=== PATIENT | female | born 1980 | race Caucasian/White ===

== ENCOUNTER 2016-08-07 09:50 | Outpatient (CLI) | payer MEDICARE ==
[2016-08-07 12:48] LABS: BASOPHILS % (AUTO) 0.3 %; EOSINOPHILS % (AUTO) 0.7 %; HCT - HEMATOCRIT 42.8 % (37.0-47.0); HGB - HEMOGLOBIN 14.1 g/dL (12.0-16.0); LYMPHOCYTES # (AUTO) 1.5 10^3/uL (1.5-3.5); LYMPHOCYTES % (AUTO) 23.1 %; MEAN CORPUSCULAR HEMOGLOBIN 28.2 pg (27.0-31.0); MEAN CORPUSCULAR VOLUME 85.4 fL (81.0-99.0); MEAN PLATELET VOLUME 9.1 fL (7.9-10.8); MONOCYTES # (AUTO) 0.4 10^3/uL (0.0-1.0); MONOCYTES % (AUTO) 6.2 %; NEUTROPHILS # (AUTO) 4.6 10^3/uL (1.5-6.6); NEUTROPHILS % (AUTO) 69.7 %; RED BLOOD COUNT 5.01 10^6/uL (4.20-5.40); RED CELL DISTRIBUTION WIDTH 14.5 % (12.0-15.0); UNCORRECTED WHITE BLOOD COUNT 6.6 x10^3/uL; WHITE BLOOD COUNT 6.6 x10^3/uL (4.8-10.8)
[2016-08-07 13:12] LABS: ALBUMIN/GLOBULIN RATIO 1.3 (1.0-2.2); BILIRUBIN,TOTAL 0.5 mg/dL (0.2-1.0); CREATININE 0.8 mg/dL (0.4-1.0); POTASSIUM 3.8 mmol/L (3.5-5.0); TOTAL PROTEIN 7.5 g/dL (6.7-8.2)
[2016-08-07 13:39] LABS: FOLATE 16.84 ng/mL (5.90 - >24.8)
[2016-08-07 13:47] LABS: THYROID STIMULATING HORMONE 1.62 uIU/mL (0.34-5.60)
== END 2016-08-07 09:51 | disposition home or self-care (01) ==
LOC: LAB.WCP 09:50
PROVIDERS: ATTEND Family Medicine
DX: R20.0 Anesthesia of skin (principal)
CPT/HCPCS: 36415; 80053; 82607; 82746; 84443; 85025

== ENCOUNTER 2016-08-15 10:40 | Emergency (ER) | payer MEDICARE ==
--- NOTE | 2016-08-15 11:01 | ED Physician Documentation ---
PD HPI FOCAL NEURO - Stated complaint Stated Complaint: NUMBNESS LT SIDE,NAUSEA - Chief complaint Chief Complaint: Neuro - History obtained from History obtained from: Patient - History of Present Illness Timing - onset: How many months ago (1) Timing - duration: Months (1) Timing - details: Gradual onset, Still present, Waxing and waning Severity of deficit: Moderate Weakness: Face, Left Numbness: Face, Left Associated symptoms: Headache, Nausea / vomiting Contributing factors: positive: Other (hx of migraines) Baseline status: positive: A&OX3, ambulatory, indep Similar symptoms before: Diagnosis (complicated migriane) Recently seen: Clinic (Seen in the clinic with intermittent numbness symptoms and has an MRI scheduled for Wednesday.) Review of Systems Constitutional: reports: Myalgias, Fatigue. denies: Fever, Chills Eyes: denies: Decreased vision Ears: denies: Ear pain Nose: denies: Rhinorrhea / runny nose, Congestion Throat: denies: Sore throat Cardiac: denies: Chest pain / pressure, Palpitations Respiratory: denies: Dyspnea, Cough GI: denies: Abdominal Pain, Nausea, Vomiting, Constipation, Diarrhea : denies: Dysuria, Frequency Skin: denies: Rash Musculoskeletal: reports: Neck pain. denies: Back pain, Extremity pain Neurologic: reports: Focal weakness, Numbness, Headache. denies: Generalized weakness, Difficulty speaking, Head injury, LOC PD PAST MEDICAL HISTORY - Past Medical History Cardiovascular: None Respiratory: None Neuro: Headache/migraine Endocrine/Autoimmune: None GI: GERD : None HEENT: None Psych: Depression, Anxiety, Bipolar disorder, Panic attacks, Post traumatic stress disorder Musculoskeletal: None Derm: None - Past Surgical History Past Surgical History: No General: Cholecystectomy - Present Medications Home Medications: Ambulatory Orders Medication Instructions Recorded Confirmed Lamotrigine [Lamictal] 150 mg PO BID 08/29/14 08/15/16 Alprazolam 1 tab PO .FREQ 08/15/16 08/15/16 - Allergies Allergies/Adverse Reactions: Allergies Allergy/AdvReac Type Severity Reaction Status Date / Time amoxicillin Allergy Intermediate Hives Verified 08/15/16 10:46 - Social History Does the pt smoke?: No Smoking Status: Never smoker Does the pt drink ETOH?: No Does the pt have substance abuse?: No - Immunizations Immunizations are current?: No Immunizations: TDAP >10years/unknown PD ED PE NORMAL - Vitals Vital signs reviewed: Yes (tachy and hypertensive ) - General General: No acute distress, Well developed/nourished - HEENT HEENT: Atraumatic, PERRL, EOMI, Ears normal, Moist mucous membranes, Pharynx benign, Dentition benign - Neck Neck: Supple, no meningeal sign, No bony TTP - Cardiac Cardiac: RRR, No murmur - Respiratory Respiratory: No respiratory distress, Clear bilaterally - Abdomen Abdomen: Soft, Non tender - Back Back: No CVA TTP, No spinal TTP - Derm Derm: Normal color, No rash - Extremities Extremities: No deformity, No edema - Neuro Neuro: Alert and oriented X 3, plant scientist 2-12 intact, No motor deficit, No sensory deficit, Normal speech - Psych Psych: Normal mood, Normal affect NIHSS - Time Time: 11:10 - Level of Consciousness Level of consciousness: (0) Alert, Keenly responsive LOC Questions: (0) Answers both Q's correct LOC Commands: (0) Performs both correctly - Gaze Best Gaze: (0) Normal - Visual Visual: (0) No loss - Facial Palsy Facial Palsy: (0) Normal, symmetrical movement - Motor Arms (both separate) Motor Arm (right): (0) No drift Motor Arm (left): (0) No drift - Motor Legs (both separate) Motor Leg (right): (0) No drift Motor Leg (left): (0) No drift - Limb Ataxia Limb Ataxia: (0) Absent - Sensory Sensory: (0) Normal - Best Language Best Language: (0) No aphasia - Dysarthria Dysarthria: (0) Normal - Extinction and Inattention (formally neg Extinction and inattention: (0) No abnormality - Total Score/Results Total Score/Result: 0 Results - Vitals Vitals: Vital Signs - 24 hr 08/15/16 08/15/16 08/15/16 10:44 12:17 12:39 Temperature 36.5 C 36.5 C Heart Rate 107 H 89 70 Respiratory 18 13 14 Rate Blood Pressure 152/85 H 123/81 H 113/72 O2 Saturation 97 98 98 Oxygen O2 Source Room air - EKG (time done) 1055 Rate: Rate (enter#) (93) Rhythm: NSR Ischemia: Normal ST segments Compare to prior EKG: Old EKG unavailable Computer interpretation: Agree with computer - Labs Labs: Laboratory Tests 08/15/16 08/15/16 08/15/16 11:15 11:15 11:15 WBC 7.2 RBC 4.97 Hgb 14.0 Hct 42.5 MCV 85.4 MCH 28.2 MCHC 33.0 RDW 14.2 Plt Count 205 MPV 8.8 Neut # 5.0 Lymph # 1.7 Miner # 0.5 Eos # 0.1 Baso # 0.0 Absolute Nucleated RBC 0.00 Nucleated RBCs 0.0 Sodium 139 Potassium 4.0 Chloride 106 Carbon Dioxide 25 Anion Gap 8.0 BUN 14 Creatinine 0.7 Estimated GFR (MDRD) 96 Glucose 82 Calcium 9.4 Total Bilirubin 0.5 AST 18 ALT 23 Alkaline Phosphatase 51 Troponin I < 0.04 Total Protein 7.1 Albumin 4.4 Globulin 2.7 Albumin/Globulin Ratio 1.6 Lipase 30 Urine Color Urine Clarity Urine pH Ur Specific [place] Urine Protein Urine Glucose (UA) Urine Ketones Urine Occult Blood Urine Nitrite Urine Bilirubin Urine Urobilinogen Ur Leukocyte Esterase Ur Microscopic Review Urine Culture Comments Urine HCG, Qual 08/15/16 12:15 WBC RBC Hgb Hct MCV MCH MCHC RDW Plt Count MPV Neut # Lymph # Miner # Eos # Baso # Absolute Nucleated RBC Nucleated RBCs Sodium Potassium Chloride Carbon Dioxide Anion Gap BUN Creatinine Estimated GFR (MDRD) Glucose Calcium Total Bilirubin AST ALT Alkaline Phosphatase Troponin I Total Protein Albumin Globulin Albumin/Globulin Ratio Lipase Urine Color YELLOW Urine Clarity CLEAR Urine pH 6.5 Ur Specific [place] <=1.005 Urine Protein NEGATIVE Urine Glucose (UA) NEGATIVE Urine Ketones NEGATIVE Urine Occult Blood TRACE-INTA Urine Nitrite NEGATIVE Urine Bilirubin NEGATIVE Urine Urobilinogen 0.2 (NORMAL) Ur Leukocyte Esterase NEGATIVE Ur Microscopic Review NOT INDICATED Urine Culture Comments NOT INDICATED Urine HCG, Qual NEGATIVE - Rads (name of study) CT head without Radiology: Prelim report reviewed (Impression: No acute intracranial abnormality.), EMP read indepedently, See rad report PD MEDICAL DECISION MAKING - ED course Complexity details: reviewed old records, reviewed results, re-evaluated patient , considered differential, d/w patient, d/w family ED course: 35 y/o female with intermittent left sided symptoms has some anxiety as well and has some symptoms in the right arm as well. She has outpatient workup in progress for MRI to be done in 2 days to R./O MS. She has been treated in the ED previously with immitrex with similar symptoms and this seemed to help. The patient herself feels that there may be some anxiety component to this. She is treated with IV compazine, benadrly, decacdron and saline and she has some improvement but is quite anxious and is given some ativan with improvement in this was well. She continued to have some symptoms after treatment and these resolved in a manor consistent with a response to treatment and she feels the episode is resolved and she would like to go home. I have discussed with the patient both complicated migraine and MS and she has follow up to get the outpatient MRI done. Departure - Departure Disposition: 01 Home, Self Care Clinical Impression: Neuralgic migraine Qualifiers: Headache chronicity pattern: episodic headache Intractability: not intractable Qualified Code(s): G44.019 - Episodic cluster headache, not intractable Condition: Stable Instructions: ED Headache Migraine Follow-Up: Adina Mathew DO [Primary Care Provider] - Discharge Date/Time: 08/15/16 13:39
[2016-08-15] MEDS ORDERED: PROCHLORPERAZINE 10 MG/2 ML VIAL IVP STA (11:22)
[2016-08-15] MEDS ORDERED: SODIUM CHLORIDE 0.9% 1,000 ML IV ONE (11:23)
[2016-08-15] MEDS ORDERED: DEXAMETHASONE 10 MG/ML VIAL IVP STA (11:23)
[2016-08-15] MEDS ORDERED: diphenhydrAMINE INJ 50 MG/ML VIAL IVP STA (11:23)
[2016-08-15] MEDS ORDERED: diphenhydrAMINE INJ 50 MG/ML VIAL ONE (11:30)
[2016-08-15] MEDS ORDERED: DEXAMETHASONE 10 MG/ML VIAL ONE (11:31)
[2016-08-15] MEDS ORDERED: PROCHLORPERAZINE 10 MG/2 ML VIAL ONE (11:31)
[2016-08-15 11:32] LABS: BASOPHILS % (AUTO) 0.5 %; EOSINOPHILS # (AUTO) 0.1 10^3/uL (0.0-0.7); EOSINOPHILS % (AUTO) 0.9 %; HCT - HEMATOCRIT 42.5 % (37.0-47.0); LYMPHOCYTES # (AUTO) 1.7 10^3/uL (1.5-3.5); LYMPHOCYTES % (AUTO) 23.1 %; MEAN CORPUSCULAR HEMOGLOBIN 28.2 pg (27.0-31.0); MEAN CORPUSCULAR VOLUME 85.4 fL (81.0-99.0); MEAN PLATELET VOLUME 8.8 fL (7.9-10.8); MONOCYTES # (AUTO) 0.5 10^3/uL (0.0-1.0); MONOCYTES % (AUTO) 6.4 %; NEUTROPHILS % (AUTO) 69.1 %; RED BLOOD COUNT 4.97 10^6/uL (4.20-5.40); RED CELL DISTRIBUTION WIDTH 14.2 % (12.0-15.0); UNCORRECTED WHITE BLOOD COUNT 7.2 x10^3/uL; WHITE BLOOD COUNT 7.2 x10^3/uL (4.8-10.8)
[2016-08-15 11:40] LABS: ALBUMIN/GLOBULIN RATIO 1.6 (1.0-2.2); BILIRUBIN,TOTAL 0.5 mg/dL (0.2-1.0); CALCIUM 9.4 mg/dL (8.5-10.3); CREATININE 0.7 mg/dL (0.4-1.0); TOTAL PROTEIN 7.1 g/dL (6.7-8.2)
--- NOTE | 2016-08-15 12:07 | CT Preliminary Report ---
Exam: CT Head W/O IMPRESSION: No acute intracranial abnormality. [facility] SITE ID: [id number]
--- NOTE | 2016-08-15 12:10 | CT Report ---
EXAM: CT HEAD EXAM DATE: 08/15/2016 11:36 AM. CLINICAL HISTORY: Left sided numbness. COMPARISON: 01/31/2013. TECHNIQUE: Multiaxial CT images were obtained from the foramen magnum to the vertex. IV contrast: Non e. Reformats: Coronal. In accordance with CT protocol optimization, one or more of the following dose reduction techniques w ere utilized for this exam: automated exposure control, adjustment of mA and/or KV based on patient s ize, or use of iterative reconstructive technique. FINDINGS: Parenchyma: No intraparenchymal hemorrhage. No evidence of mass, midline shift, or CT findings of inf arction. Briggs-white differentiation is distinct. Extraaxial Spaces: Normal for age. No subdural or epidural collections identified. Ventricles: Normal in size and position. Sinuses: Imaged paranasal sinuses, orbits, and mastoids show no significant abnormality. Bones: No evidence of fracture or calvarial defect. Other: None. IMPRESSION: No acute intracranial abnormality. [facility] Referring Provider Line: [phone] SITE ID: [id number]
[2016-08-15] MEDS ORDERED: LORazepam 2 MG/ML SYRINGE IVP STA (12:23)
[2016-08-15 12:27] LABS: BILIRUBIN,URINE NEGATIVE (NEGATIVE); PH,URINE 6.5 PH (5.0-7.5)
[2016-08-15] MEDS ORDERED: LORazepam 2 MG/ML SYRINGE ONE (12:28)
[2016-08-15 12:30] LABS: HCG UR QUAL NEGATIVE; UA CHARGE (STRIP ONLY) YES; UR CULTURE IF IND NOT INDICATED
[2016-08-15] MEDS ORDERED: WATER FOR INJECTION,STERILE 10 ML ONE (12:30)
[2016-08-15 12:39] VITALS: BP 113/72
== END 2016-08-15 13:39 | disposition home or self-care (01) ==
LOC: ED 10:40
DX: G44.019 Episodic cluster headache, not intractable (principal); F41.9 Anxiety disorder, unspecified; R20.0 Anesthesia of skin; R29.810 Facial weakness
CPT/HCPCS: 36415; 70450; 80053; 81003; 81025; 83690; 84484; 85025; 93005; 96374; 96375; 99284; J2060; 81001; 87086

== ENCOUNTER 2016-08-17 07:42 | Outpatient (CLI) | payer MEDICARE ==
[2016-08-17] MEDS ORDERED: GADOBUTROL 10 MMOL/10 ML SYRINGE IVP ONE (08:26)
--- NOTE | 2016-08-17 11:17 | MRI Report ---
EXAM: MRI BRAIN WITHOUT AND WITH CONTRAST EXAM DATE: 08/17/2016 08:54 AM. CLINICAL HISTORY: NUMBNESS. COMPARISON: None. TECHNIQUE: Multiplanar, multisequence T1-weighted and fluid-sensitive MR sequences of the brain were performed. Sequences optimized for routine evaluation. Other: None. Without and with IV Contrast: Yes . Findings: [facility] Referring Provider Line: [phone] SITE ID: [id number]
== END 2016-08-17 07:43 | disposition home or self-care (01) ==
LOC: DI 07:42
PROVIDERS: ATTEND Family Medicine
DX: R20.0 Anesthesia of skin (principal)
CPT/HCPCS: 70553; A9585

== ENCOUNTER 2017-10-13 16:44 | Outpatient (CLI) | payer OTHER, MEDICARE ==
--- NOTE | 2017-10-13 23:34 | Ultrasound Report ---
Procedure Date: 10/13/2017 Accession Number: [id number] / [id number] Procedure: US - Pelvic w/Transvaginal CPT Code: FULL RESULT: EXAM: PELVIC ULTRASOUND EXAM DATE: 10/13/2017 06:08 PM. CLINICAL HISTORY: Abdominal pain. COMPARISON: 06/14/2013. TECHNIQUE: Real-time transabdominal pelvic scan performed to identify the uterus and adnexa and as an overview of other pelvic structures, followed by transvaginal scan to provide greater detail of the uterus and adnexa, with static image documentation. FINDINGS: Uterus: 10.1 x 4.3 x 5.7 cm, volume 129.5 cc. Anteverted position. Normal overall size and echotexture. Masses: None. Endometrium: 6.8 mm. Normal. Cervix: Nabothian cysts are noted. No concerning features. Right Ovary: 1.7 x 1.5 x 2.8 cm, volume 3.7 cc. Normal echotexture and blood flow. Left Ovary: 3.6 x 2.7 x 3.0 cm, volume 15.3 cc. Normal echotexture and blood flow. 1.4 x 0.9 x 1 cm left ovarian cyst. No wall irregularities, mural nodules or thickened septations. Free Fluid: None. Other: None. IMPRESSION: 1. 1.4 cm simple left ovarian cyst. Otherwise, both adnexa and ovaries are normal. 2. No endometrial mass or polyp. No unexpected radiopaque foreign bodies. 3. No uterine fibroids. [facility]
== END 2017-10-13 16:45 | disposition home or self-care (01) ==
LOC: DI 16:44
PROVIDERS: ATTEND Physician Assistant Medical
DX: R10.9 Unspecified abdominal pain (principal); N83.292 Other ovarian cyst, left side
CPT/HCPCS: 76830; 76856

== ENCOUNTER 2018-02-17 15:56 | Observation (INO) | payer OTHER, MEDICARE ==
[2018-02-17] MEDS ORDERED: LORazepam 0.5 MG TABLET PO STA (16:27)
--- NOTE | 2018-02-17 16:29 | ED Physician Documentation ---
PD HPI FOCAL NEURO - Stated complaint Stated Complaint: NUMB FACE,CONFUSION - Chief complaint Chief Complaint: Neuro - History obtained from History obtained from: Patient - History of Present Illness Timing - onset: Other (37-year-old woman with history of bipolar disorder on Lamictal presents with 2 weeks of occasional trouble with word finding. Then over the last 4 days she is noticed left-sided numbness involving the face and arm. And progressively over the last few days she is been weak in both upper extremities and feeling like she is walking into things. There is mild associated headache but it does not really bother her. She does feel anxious with it and request Ativan prior to a CT scan.) Review of Systems Ten Systems: 10 systems reviewed and negative Constitutional: denies: Fever, Chills Throat: denies: Dental pain / toothache, Sore throat Cardiac: denies: Chest pain / pressure, Palpitations Respiratory: denies: Dyspnea PD PAST MEDICAL HISTORY - Past Medical History Cardiovascular: None Respiratory: None Endocrine/Autoimmune: None GI: GERD : None HEENT: None Psych: Depression, Anxiety, Bipolar disorder, Panic attacks, Post traumatic stress disorder Musculoskeletal: None Derm: None - Past Surgical History Past Surgical History: No General: Cholecystectomy - Present Medications Home Medications: Ambulatory Orders Medication Instructions Recorded Confirmed lamoTRIgine [Lamictal] 150 mg PO BID 08/29/14 08/15/16 ALPRAZolam [Alprazolam] 1 tab PO .FREQ 08/15/16 08/15/16 - Allergies Allergies/Adverse Reactions: Allergies Allergy/AdvReac Type Severity Reaction Status Date / Time amoxicillin Allergy Intermediate Hives Verified 02/17/18 16:10 - Social History Does the pt smoke?: No Smoking Status: Never smoker Does the pt drink ETOH?: No Does the pt have substance abuse?: No - Family History Family history: reports: Non contributory - Immunizations Immunizations are current?: No Immunizations: TDAP >10years/unknown PD ED PE NORMAL - Vitals Vital signs reviewed: Yes - General General: Alert and oriented X 3, No acute distress - HEENT HEENT: PERRL, EOMI - Neck Neck: Supple, no meningeal sign, No bony TTP - Cardiac Cardiac: RRR, No murmur - Respiratory Respiratory: No respiratory distress, Clear bilaterally - Abdomen Abdomen: Normal bowel sounds, Soft, Non tender - Back Back: No CVA TTP, No spinal TTP - Derm Derm: Normal color, Warm and dry - Neuro Neuro: Alert and oriented X 3, Normal speech NIHSS - Time Time: 16:25 - Level of Consciousness Level of consciousness: (0) Alert, Keenly responsive LOC Questions: (0) Answers both Q's correct LOC Commands: (0) Performs both correctly - Gaze Best Gaze: (0) Normal - Visual Visual: (0) No loss - Facial Palsy Facial Palsy: (0) Normal, symmetrical movement - Motor Arms (both separate) Motor Arm (right): (0) No drift Motor Arm (left): (0) No drift - Motor Legs (both separate) Motor Leg (right): (0) No drift Motor Leg (left): (0) No drift - Limb Ataxia Limb Ataxia: (0) Absent - Sensory Sensory: (1) [id number] loss (Left face and arm which spares the forehead and leg) - Best Language Best Language: (0) No aphasia - Dysarthria Dysarthria: (0) Normal - Extinction and Inattention (formally neg Extinction and inattention: (0) No abnormality - Total Score/Results Total Score/Result: 1 Results - Vitals Vitals: Vital Signs - 24 hr 02/17/18 16:07 Temperature 36.9 C Heart Rate 101 H Respiratory 20 Rate Blood Pressure 138/95 H O2 Saturation 100 Oxygen O2 Source Room air - Labs Labs: Laboratory Tests 02/17/18 02/17/18 02/17/18 16:15 16:30 16:30 WBC 10.2 RBC 5.38 Hgb 15.0 Hct 46.4 MCV 86.2 MCH 27.9 MCHC 32.4 RDW 14.3 Plt Count 255 MPV 8.6 Neut # (Auto) 7.2 H Lymph # (Auto) 2.3 Hemphill # (Auto) 0.6 Eos # (Auto) 0.1 Baso # (Auto) 0.0 Absolute Nucleated RBC 0.01 Nucleated RBC % 0.1 VBG pH VBG pCO2 VBG pO2 VBG HCO3 VBG Total CO2 VBG O2 Saturation VBG Base Excess Sodium 136 Potassium 3.5 Chloride 105 Carbon Dioxide 23 Anion Gap 8.0 BUN 15 Creatinine 1.0 Estimated GFR (MDRD) 63 L Glucose 92 Calcium 9.6 Total Bilirubin 0.5 AST 19 ALT 26 Alkaline Phosphatase 53 Total Protein 7.4 Albumin 4.4 Globulin 3.0 Albumin/Globulin Ratio 1.5 Lipase 40 Urine Color YELLOW Urine Clarity CLEAR Urine pH 5.5 Ur Specific [place] >=1.030 H Urine Protein NEGATIVE Urine Glucose (UA) NEGATIVE Urine Ketones NEGATIVE Urine Occult Blood SMALL H Urine Nitrite NEGATIVE Urine Bilirubin NEGATIVE Urine Urobilinogen 0.2 (NORMAL) Ur Leukocyte Esterase TRACE H Urine RBC 0-5 Urine WBC 0-3 Ur Squamous Epith Cells MOD Squamous H Urine Bacteria Few Ur Microscopic Review INDICATED Urine Culture Comments NOT INDICATED Urine HCG, Qual NEGATIVE 02/17/18 16:30 WBC RBC Hgb Hct MCV MCH MCHC RDW Plt Count MPV Neut # (Auto) Lymph # (Auto) [place]phill # (Auto) Eos # (Auto) Baso # (Auto) Absolute Nucleated RBC Nucleated RBC % VBG pH 7.373 VBG pCO2 42.8 VBG pO2 30.4 VBG HCO3 24.4 VBG Total CO2 25.7 VBG O2 Saturation 63.5 VBG Base Excess -1.0 Sodium Potassium Chloride Carbon Dioxide Anion Gap BUN Creatinine Estimated GFR (MDRD) Glucose Calcium Total Bilirubin AST ALT Alkaline Phosphatase Total Protein Albumin Globulin Albumin/Globulin Ratio Lipase Urine Color Urine Clarity Urine pH Ur Specific [place] Urine Protein Urine Glucose (UA) Urine Ketones Urine Occult Blood Urine Nitrite Urine Bilirubin Urine Urobilinogen Ur Leukocyte Esterase Urine RBC Urine WBC Ur Squamous Epith Cells Urine Bacteria Ur Microscopic Review Urine Culture Comments Urine HCG, Qual PD MEDICAL DECISION MAKING - ED course ED course: 37 yo woman with Odd Left facial numbness, word finding difficulties and left arm numbness. It does spare the forehead suggesting against a psychosomatic cause. There is no abnormality seen on plain CT. Spoke with Dr. Jones at [facility] who recommends observation here for carotid Dopplers and noncontrast MRI in the morning and spoke with Dr. Christian for same at 6 PM. [facility] does recommend aspirin in the interim. Departure - Departure Disposition: ED Place in Observation Clinical Impression: Stroke-like symptoms Condition: Stable
[2018-02-17 16:35] LABS: BILIRUBIN,URINE NEGATIVE (NEGATIVE); CLARITY,URINE CLEAR (CLEAR); GLUCOSE, URINE (UA) NEGATIVE (NEGATIVE); KETONES,URINE (UA) NEGATIVE (NEGATIVE); LEUKOCYTE ESTERASE, URINE TRACE (NEGATIVE); NITRITE,URINE NEGATIVE (NEGATIVE); OCCULT BLOOD,URINE SMALL (NEGATIVE); PH,URINE 5.5 PH (5.0-7.5); PROTEIN,URINE NEGATIVE (NEGATIVE); UROBILINOGEN,URINE 0.2 (NORMAL) E.U./dL (NORMAL)
[2018-02-17 16:37] LABS: HCG UR QUAL NEGATIVE
[2018-02-17 16:45] LABS: BASOPHILS % (AUTO) 0.3 %; EOSINOPHILS # (AUTO) 0.1 10^3/uL (0.0-0.7); EOSINOPHILS % (AUTO) 0.6 %; LYMPHOCYTES # (AUTO) 2.3 10^3/uL (1.5-3.5); LYMPHOCYTES % (AUTO) 22.8 %; MEAN CORPUSCULAR HEMOGLOBIN 27.9 pg (27.0-31.0); MEAN CORPUSCULAR HGB CONC 32.4 g/dL (32.0-36.0); MEAN CORPUSCULAR VOLUME 86.2 fL (81.0-99.0); MEAN PLATELET VOLUME 8.6 fL (7.9-10.8); MONOCYTES # (AUTO) 0.6 10^3/uL (0.0-1.0); MONOCYTES % (AUTO) 5.5 %; NEUTROPHILS # (AUTO) 7.2 10^3/uL (1.5-6.6); NEUTROPHILS % (AUTO) 70.8 %; PLT - PLATELET COUNT 255 10^3/uL (130-450); RED BLOOD COUNT 5.38 10^6/uL (4.20-5.40); RED CELL DISTRIBUTION WIDTH 14.3 % (12.0-15.0); WHITE BLOOD COUNT 10.2 x10^3/uL (4.8-10.8)
[2018-02-17 16:51] LABS: VBG PCO2 42.8 mmHg (41-51); VBG PH 7.373 (7.31-7.41); VBG PO2 30.4 mmHg (25-47); VBG TOTAL CO2 25.7 mmol/L (24-29)
[2018-02-17 16:53] LABS: RBC,URINE 0-5 /HPF (0-5); SQUAMOUS EPITHELIAL CELL,UR MOD Squamous (<= Few)
[2018-02-17 16:54] LABS: BACTERIA,URINE Few /HPF (None Seen)
[2018-02-17 16:58] LABS: ALBUMIN 4.4 g/dL (3.2-5.5); ALBUMIN/GLOBULIN RATIO 1.5 (1.0-2.2); BILIRUBIN,TOTAL 0.5 mg/dL (0.2-1.0); CALCIUM 9.6 mg/dL (8.5-10.3); TOTAL PROTEIN 7.4 g/dL (6.7-8.2)
--- NOTE | 2018-02-17 17:43 | CT Report ---
Reason: neuro sx with L numbness Procedure Date: 02/17/2018 Accession Number: [id number] / [id number] Procedure: CT - Head W/O CPT Code: FULL RESULT: EXAM: CT HEAD EXAM DATE: 02/17/2018 04:58 PM. CLINICAL HISTORY: Neuro sx with L numbness. COMPARISON: HEAD W/O 08/15/2016 11:31 AM. TECHNIQUE: Multiaxial CT images were obtained from the foramen magnum to the vertex. Reformats: Sagittal and coronal. IV contrast: None. In accordance with CT protocol optimization, one or more of the following dose reduction techniques were utilized for this exam: automated exposure control, adjustment of mA and/or KV based on patient size, or use of iterative reconstructive technique. FINDINGS: Parenchyma: No intraparenchymal hemorrhage. No evidence of mass, midline shift, or CT findings of infarction. Briggs-white differentiation is distinct. Extraaxial Spaces: Normal for age. No subdural or epidural collections identified. Ventricles: Normal in size and position. Sinuses and Orbits: Imaged paranasal sinuses, orbits, and mastoids show no significant abnormality. Bones: No evidence of fracture or calvarial defect. Other: None. IMPRESSION: No acute intracranial CT abnormality. [facility]
[2018-02-17] MEDS ORDERED: ASPIRIN CHEW 81 MG TABLET PO STA (18:12)
[2018-02-17] MEDS ORDERED: SODIUM CHLORIDE FLUSH 0.9% 10 ML SYRINGE IVP PRN (18:16)
[2018-02-17] MEDS ORDERED: ACETAMINOPHEN 325 MG TABLET PO PRN (18:16)
[2018-02-17] MEDS ORDERED: ONDANSETRON 4 MG/2 ML VIAL IVP PRN (18:16)
[2018-02-17] MEDS ORDERED: LORazepam 0.5 MG TABLET PO PRN (18:47)
--- NOTE | 2018-02-17 18:53 | HISTORY & PHYSICAL EXAMINATION ---
Chief Complaint - Chief Complaint Chief Complaint: left facial numbness History of Present Illness - History of Present Illness HPI Comment/Other: Ms. Hernandez is a 37-year-old woman with history of bipolar disorder on Lamictal, anxiety, obese, who present complain left facial numbness. Pt also report she Has felt like having speech difficulties for the last 2 weeks, has been having intermittent left facial numbness for 4 days, and she had mild headache since yesterday. She also report some kind of discoordination and progressively over the last few days she is been weak in both upper extremities and feeling like she is walking into things. She does feel anxious and state she will feel anxiety if her can not stay with her in the night because of his job. Pt denies chest pain, fever, chill, cough, abdomina pain, nausea, vomiting, dysuri a, vision change. Pt had MRI about one and half years ago shown simple-appearing arachnoid cyst 1.1 cm in the corpus callosum. There is no abnormality seen on plain CT today. ER provide spoke with Dr. Jones at [facility] who recommends observation here for carotid Dopplers and noncontrast MRI in the morning and spoke with [facility]ist also recommend aspirin in the interim. Otherwise pt's lab value is unremarkable and is hemodynamic stable. 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 She is with two health children Social History Notes: pt denies cigarette smoking, alcohol and drug abuse - POLST Patient has POLST: No POLST Status: Full Code Meds/Allgy - Home Medications Home Medications: Ambulatory Orders Medication Instructions Recorded Confirmed lamoTRIgine [Lamictal] 150 mg PO BID 08/29/14 08/15/16 - Allergies Allergies/Adverse Reactions: Allergies Allergy/AdvReac Type Severity Reaction Status Date / Time amoxicillin Allergy Intermediate Hives Verified 02/17/18 16:10 Review of Systems - Constitutional Constitutional: denies: Fatigue, Fever, Chills, Malaise, Weakness, Poor appetite, Diaphoresis - Eyes Eyes: denies: Pain, Irritation, Amaurosis, Blurred vision, Spots in vision, Field loss, Vision loss, Dipolpia - Ears, Nose & Throat Ears, Nose & Throat: denies: Ear pain, Hearing loss, Hearing aids, Tinnitus, V ertigo, Nasal pain, Nasal discharge, Nosebleeds, Nasal obstruction, Nasal congestion, Postnasal drainage, Dentures, Sore throat, Hoarseness, Mouth lesions - Cardiovascular Cariovascular: denies: Irregular heart rate, Palpitations, Chest pain, Edema, Lightheadedness, Syncope, Exertional dyspnea, Decr. exercise tolerance - Respiratory Respiratory: denies: Cough, Sputum production, Wheezing, Snoring, Hemoptysis, Orthopnea, SOB at rest, SOB with exertion - Gastrointestinal Gastrointestinal: denies: Abdominal pain, Abdominal distention, Diarrhea, Change in bowel habits, Rectal bleeding, Black stools, Bloody stools, Nausea, Vomiting, Bile emesis, Anand blood emesis, Coffee grounds emesis, Reflux/heartburn - Genitourinary Genitourinary: denies: Dysuria, Frequency, Urgency, Hematuria, Incontinence, Flank pain, Nocturia, Urethral discharge - Musculoskeletal Musculoskeletal: denies: Muscle pain, Back pain, Muscle aches, Stiffness, Limited range of motion, Muscle weakness, Gout, Joint pain - Integumentary Integumentary: denies: Rash, Pruritis, Lesions, Dryness, Lumps, Acne, Pigment changes, Nail changes - Neurological Neurological: reports: Numbness, Abnormal gait, Incoordination, Slurred speech. denies: General weakness, Focal weakness, Headache, Dizziness, Memory problems, Pre-existing deficit, Seizures - Psychiatric Psychiatric: reports: Anxiety. denies: Depression, Suicidal, Delusions, Hallucinations, Homicidal - Endocrine Endocrine: denies: Polyuria, Polydypsia, Polyphagia, Intolerance to cold - Hematologic/Lymphatic Hematologic/Lymphatic: denies: Anemia, Bruising, Petechiae, Blood clots, Lymphadenopathy, Bleeding tendencies Exam - Vital Signs Reviewed Vital Signs: Yes Vital Signs: Vital Signs x48h Temp Pulse Resp BP Pulse Ox 12/27/18 16:07 36.9 C 101 H 20 138/95 H 100 - Physical Exam General Appearance: positive: No acute distress, Alert. negative: Lethargic Eyes Bilateral: positive: Normal inspection, PERRL, No lid inflammation, Conjunctivae nml ENT: positive: ENT inspection nml, Pharynx nml, No signs of dehydration. negative: Purulent nasal drainage, Pharyngeal erythema, Oral lesions Neck: positive: Nml inspection, Thyroid nml, No JVD, Trachea midline. negative: Thyromegaly, Lymphadenopathy (R), Lymphadenopathy (L), Stiff neck, Swelling/bruising, Tracheal deviation Respiratory: positive: Chest non-tender, No respiratory distress, Breath sounds nml. negative: Wheezes, Rales, Rhonchi Cardiovascular: positive: Regular rate & rhythm, No murmur, No gallop. negative: Irregularly irregular, Extrasystoles, Tachycardia, Bradycardia, JVD present, Systolic murmur, Diastolic murmur Peripheral Pulses: positive: 2+ Abdomen: positive: Non-tender, No organomegaly, Nml bowel sounds. negative: Tenderness, Guarding, Rebound Back: positive: Nml inspection. negative: CVA tenderness (R), CVA tenderness (L) Skin: positive: Color nml, No rash, Warm, Dry. negative: Cyanosis, Diaphoresis, Pallor Extremities: positive: Non-tender, Full ROM, Nml appearance. negative: Calf tenderness, Joint swelling, Terrance's sign/cords Neurologic/Psychiatric: positive: Oriented x3, Motor nml, Mood/affect nml. negative: Sensation nml, Weakness, Sensory loss, Facial droop, Slurred/abnml speech, Depressed mood/affect Sepsis Event Note (H) - Evaluation Current Stage of Sepsis: Ruled out Conclusion/Plan - Problem List (1) Stroke-like symptoms Conclusion/Plan: pt report numbness at left facial, bilateral weakness, slow speech. On the examination, pt does not show weakness, and slow speech. pt present normal speech. but pt continue to report some kind of numbness on her left hand and facial. Order MRI, US of Carotid, ECHO start with Aspirin 324 mg daily per [facility] recommended Lipitor 40 mg daily PT/OT tele and vital monitor lab and lipid panel study neuro check (2) Bipolar 1 disorder Conclusion/Plan: stable, continue home meds Lamiotical, and check serum concentration (3) Anxiety Conclusion/Plan: order Ativan, support and monitor (4) Obese Conclusion/Plan: consult with pt for obese, advise loss of weight (5) Full code status Conclusion/Plan: pt request full code - Lab Results Fish Bones: 02/18/18 04:50 02/18/18 04:50 Core Measures - Anticipated LOS I expect patient to be DC'd or transferred within 96 hours.: Yes - DVT/VTE - Prophylaxis VTE/DVT Device ordered at admit?: Yes VTE/DVT Prophylaxis med ordered at admit?: Yes
[2018-02-17] MEDS ORDERED: LORazepam 2 MG/ML VIAL IVP SCH (19:00)
[2018-02-17] MEDS ORDERED: ATORVASTATIN 40 MG TABLET PO SCH (21:00)
[2018-02-17] MEDS: FAMOTIDINE 20 MG TABLET PO SCH (21:51)
[2018-02-17] MEDS: lamoTRIgine 100 MG TABLET PO SCH (21:51)
--- NOTE | 2018-02-18 00:39 | Ultrasound Report ---
Reason: TIA Procedure Date: 02/17/2018 Accession Number: [id number] / [id number] Procedure: US - Carotid Doppler Complete CPT Code: FULL RESULT: EXAM: BILATERAL CAROTID AND VERTEBRAL ARTERY DUPLEX DOPPLER ULTRASOUND: EXAM DATE: 02/17/2018 11:59 PM CLINICAL HISTORY: Stroke. COMPARISON: HEAD W/O 02/17/2018 4:58 PM. TECHNIQUE: Grayscale imaging, color Doppler, and duplex spectral Doppler were used to evaluate the carotid and vertebral arteries bilaterally. Static images were obtained. FINDINGS: No significant plaque is identified in the right or left common or internal carotid arteries. Normal antegrade flow is present in bilateral vertebral arteries. VELOCITIES (cm/sec): Right CCA mid: PSV 104 cm/sec CCA dist: PSV 88 cm/sec ICA prox: PSV 91 cm/sec, EDV 38 cm/sec ICA mid: PSV 97 cm/sec, EDV 45 cm/sec ICA dist: PSV 109 cm/sec, EDV 42 cm/sec ECA: PSV 91 cm/sec Vert: PSV 50 cm/sec ICA/CCA: 1.23 Left CCA mid: PSV 104 cm/sec CCA dist: PSV 87 cm/sec ICA prox: PSV 100 cm/sec, EDV 34 cm/sec ICA mid: PSV 82 cm/sec, EDV 33 cm/sec ICA dist: PSV 81 cm/sec, EDV 30 cm/sec ECA: PSV 96 cm/sec Vert: PSV 49 cm/sec ICA/CCA: 1.14 ICA diameter stenosis: Right: <50% by velocity and <70% by NASCET criteria. Left: <50% by velocity and <70% by NASCET criteria. IMPRESSION: 1. No significant bilateral carotid artery plaquing. 2. In the right carotid artery there are no elevated carotid artery velocities to suggest hemodynamically significant stenosis. 3. In the left carotid artery there are no elevated carotid artery velocities to suggest hemodynamically significant stenosis. 4. Normal antegrade flow is present in bilateral vertebral arteries. General Recommendations: Stenosis =50% ICA - Follow-up ultrasound 6-12 months Stenosis <50% ICA - High Risk Patient with plaque - Follow-up ultrasound 1-2 years Normal Study but High Risk Patient - Follow-up ultrasound 3-5 years Management recommendations and diagnostic criteria are based on current IAC endorsed standards in Carotid Artery Stenosis: Grayscale and Doppler Ultrasound Diagnosis. Validated velocity measurements with angiographic measurements and velocity criteria are extrapolated from diameter data as defined by the Society of Radiologists in Ultrasound Consensus Conference Radiology 2003; 229;340-346. RADIA
[2018-02-18] MEDS: SODIUM CHLORIDE FLUSH 0.9% 10 ML SYRINGE IVP SCH ×2 (01:44→08:35)
[2018-02-18 05:13] LABS: BASOPHILS % (AUTO) 0.5 %; EOSINOPHILS # (AUTO) 0.1 10^3/uL (0.0-0.7); EOSINOPHILS % (AUTO) 0.8 %; HGB - HEMOGLOBIN 13.6 g/dL (12.0-16.0); LYMPHOCYTES # (AUTO) 2.1 10^3/uL (1.5-3.5); LYMPHOCYTES % (AUTO) 27.2 %; MEAN CORPUSCULAR HEMOGLOBIN 27.9 pg (27.0-31.0); MEAN CORPUSCULAR HGB CONC 32.3 g/dL (32.0-36.0); MEAN CORPUSCULAR VOLUME 86.3 fL (81.0-99.0); MEAN PLATELET VOLUME 8.6 fL (7.9-10.8); MONOCYTES # (AUTO) 0.4 10^3/uL (0.0-1.0); MONOCYTES % (AUTO) 5.6 %; NEUTROPHILS # (AUTO) 5.2 10^3/uL (1.5-6.6); NEUTROPHILS % (AUTO) 65.9 %; PLT - PLATELET COUNT 220 10^3/uL (130-450); RED BLOOD COUNT 4.86 10^6/uL (4.20-5.40); RED CELL DISTRIBUTION WIDTH 14.6 % (12.0-15.0); WHITE BLOOD COUNT 7.8 x10^3/uL (4.8-10.8)
[2018-02-18 05:17] LABS: ALBUMIN 3.9 g/dL (3.2-5.5); ALBUMIN/GLOBULIN RATIO 1.3 (1.0-2.2); BILIRUBIN,TOTAL 0.4 mg/dL (0.2-1.0); CALCIUM 8.7 mg/dL (8.5-10.3); CREATININE 0.8 mg/dL (0.4-1.0); MAGNESIUM 2.1 mg/dL (1.7-2.8); TOTAL PROTEIN 6.8 g/dL (6.7-8.2)
[2018-02-18 05:22] LABS: CHOL/HDL RATIO 3.8 (<4.4); CHOLESTEROL 175 mg/dL; HDL CHOLESTEROL 46 mg/dL; LDL CHOLESTEROL,CALCULATED 110 mg/dL; LDL/HDL RATIO 2.4 (<4.4); VLDL CHOLESTEROL 19 mg/dL
[2018-02-18] MEDS ORDERED: ASPIRIN 325 MG TABLET PO SCH (08:00)
[2018-02-18] MEDS: lamoTRIgine 100 MG TABLET PO SCH (08:35)
[2018-02-18] MEDS: FAMOTIDINE 20 MG TABLET PO SCH (08:35)
[2018-02-18] MEDS ORDERED: ENOXAPARIN 40 MG/0.4 ML SYRINGE SUBQ SCH (09:00)
[2018-02-18] MEDS ORDERED: POLYETHYLENE GLYCOL 3350 17 GM PACKET PO SCH (09:00)
--- NOTE | 2018-02-18 11:15 | MRI Report ---
Reason: tia Procedure Date: 02/18/2018 Accession Number: [id number] / [id number] Procedure: MRI - Brain W/O CPT Code: FULL RESULT: MRI BRAIN WITHOUT CONTRAST INDICATION: 37-year-old female with dizziness and headaches. Concern for TIA. TECHNIQUE: 1. T1 sagittal and fat-saturated T2 coronal. 2. Axial T1, FLAIR, T2* and DWI. COMPARISON: Head CT 02/17/2018 brain MRI 08/17/2016 FINDINGS: The quality of the axial T2 FLAIR sequence is not optimal. The previously demonstrated, mild white matter disease in the supratentorial brain is not well seen. No obvious new focal abnormality is identified, and the brain on review of the axial T2 FLAIR and coronal fat saturated T2 sequences. There appear to be flow voids for the main intracranial arteries. No abnormal diffusion restriction is demonstrated. No evidence of acute or chronic hemorrhage on T2*GRE sequence. No abnormal extraaxial fluid collection. No mass effect or midline shift. Ventricular size remains normal. Limited evaluation of the orbits reveals no gross pathology. The paranasal sinuses are essentially clear. No mastoid or middle ear effusion. IMPRESSION: 1. Image quality on axial T2 FLAIR sequence is not optimal, somewhat limiting the diagnostic quality of this examination. 2. However, grossly imaging of the brain appear stable when compared to previous brain MRI 08/17/2016. 3.. There is no evidence of infarction, hemorrhage, space-occupying mass lesion or other acute intracranial abnormality.
[2018-02-18 11:39] VITALS: BP 106/62
--- NOTE | 2018-02-18 12:13 | XRAY Report ---
Reason: SOB Procedure Date: 02/18/2018 Accession Number: [id number] / [id number] Procedure: XR - Chest 1 View X-Ray CPT Code: 08263 FULL RESULT: EXAM: CHEST RADIOGRAPHY EXAM DATE: 02/18/2018 11:26 AM. CLINICAL HISTORY: Shortness of breath. COMPARISON: XR CHEST PA AND LAT 02/18/2009 1:21 PM. TECHNIQUE: 1 view. FINDINGS: Lungs/Pleura: No focal opacities evident. No pleural effusion. No pneumothorax. Mediastinum: Within exam limitations, the cardiomediastinal contour is normal. Other: None. IMPRESSION: No airspace disease is detected. RADIA
--- NOTE | 2018-02-18 14:29 | Discharge Plan ---
Discharge Plan Disposition: 01 Home, Self Care Condition: Poor Prescriptions: Aspirin [Adult Aspirin Regimen] 81 mg PO DAILY #15 tablet. Diet: Regular Activity Restrictions: Activity as Tolerated Shower Restrictions: No (fall precaution) Instruction Topics: Aspirin ASA chewable tablets Additional Instructions or Follow Up instructions: you may followup your PCP in one week, followup neurologist as out-pt. All your tests including MRI of brain, US of carotid, ECHO, CXR, CT of head, EKG, and your blood work are unremarkable at this time. Should your symptoms return or worsen, you may present ER or call 911, or your PCP for help. No Smoking: If you smoke, Please STOP! Call for help. Follow-up with: Adina Mathew DO [Primary Care Provider] -
--- NOTE | 2018-02-18 14:42 | DISCHARGE SUMMARY ---
Discharge Summary Discharge Date: 02/18/18 Discharging Provider: [place] Primary Care Provider: Dr. Mathew Condition at Discharge: Stable Discharge Disposition: 01 Home, Self Care Discharge Facility Name: home - DIAGNOSES Admission Diagnoses: (1) Stroke-like symptoms (2) Bipolar 1 disorder (3) Anxiety (4) Obese Discharge Diagnoses with Status of Each Condition: 1) Stroke-like symptoms resolved. All pt's image studies are unremarkable, include MRI brain, CT of head, ECHO, EKG, US of Carotid, CXR. Discuss with pt about the results of all these image studies pt concern her family hx of MS, her Mother and aunt both had MS. Advise pt followup PCP and neurologist for further evaluation if her symptoms return (2) Bipolar 1 disorder stable (3) Anxiety stable (4) Obese advise pt loss of weight - HPI History of Present Illness: Ms. Hernandez is a 37-year-old woman with history of bipolar disorder on Lamictal, anxiety, obese, who present complain left facial numbness. Pt also report she Has felt like having speech difficulties for the last 2 weeks, has been having intermittent left facial numbness for 4 days, and she had mild headache since yesterday. She also report some kind of discoordination and progressively over the last few days she is been weak in both upper extremities and feeling like she is walking into things. She does feel anxious and state she will feel anxiety if her can not stay with her in the night because of his job. Pt denies chest pain, fever, chill, cough, abdomina pain, nausea, vomiting, dysuria, vision change. Pt had MRI about one and half years ago shown simple-appearing arachnoid cyst 1.1 cm in the corpus callosum. There is no abnormality seen on plain CT today. ER provide spoke with Dr. Jones at [facility] who recommends observation here for carotid Dopplers and noncontrast MRI in the morning and spoke with [facility] neurologist also recommend aspirin in the interim. Otherwise pt's lab value is unremarkable and is hemodynamic stable. - HOSPITAL COURSE Hospital Course: pt was admitted for TIA-like symptoms. Pt's symptoms were resolved after she was at hospital. All pt's image studies are unremarkable. - ALLERGIES Allergies/Adverse Reactions: Allergies Allergy/AdvReac Type Severity Reaction Status Date / Time amoxicillin Allergy Intermediate Hives Verified 02/17/18 16:10 - MEDICATIONS Home Medications: Ambulatory Orders Medication Instructions Recorded Confirmed RX: lamoTRIgine [Lamictal] 300 mg PO QPM 08/29/14 02/18/18 RX: ALPRAZolam [Alprazolam] 1 mg PO DAILY PRN 02/18/18 02/18/18 RX: Aspirin [Adult Aspirin Regimen] 81 mg PO DAILY #15 tablet. 02/18/18 RX: Ibuprofen [Advil] 800 mg PO BID PRN 02/18/18 02/18/18 - PHYSICAL EXAM AT DISCHARGE General Appearance: positive: No acute distress, Alert. negative: Lethargic Eyes Bilateral: positive: Normal inspection, PERRL, No lid inflammation, Conjunctivae nml ENT: positive: ENT inspection nml, Pharynx nml, No signs of dehydration. negative: Purulent nasal drainage, Pharyngeal erythema, Oral lesions Neck: positive: Nml inspection, Thyroid nml, No JVD, Trachea midline. negative: Thyromegaly, Lymphadenopathy (R), Lymphadenopathy (L), Stiff neck, Swelling/bruising, Tracheal deviation Respiratory: positive: Chest non-tender, No respiratory distress, Breath sounds nml. negative: Wheezes, Rales, Rhonchi Cardiovascular: positive: Regular rate & rhythm, No murmur, No gallop. negative: Irregularly irregular, Extrasystoles, Tachycardia, Bradycardia, JVD present, Systolic murmur, Diastolic murmur Peripheral Pulses: positive: 2+ Abdomen: positive: Non-tender, No organomegaly, Nml bowel sounds, No distention. negative: Tenderness, Guarding, Rebound Back: positive: Nml inspection. negative: CVA tenderness (R), CVA tenderness (L) Skin: positive: Color nml, No rash, Warm, Dry. negative: Cyanosis, Diaphoresis, Pallor Extremities: positive: Non-tender, Full ROM, Nml appearance. negative: Calf tenderness, Joint swelling, Terrance's sign/cords Neurologic/Psychiatric: positive: Oriented x3, Motor nml, Sensation nml, Mood/a ffect nml. negative: Weakness, Sensory loss, Facial droop, Slurred/abnml speech, Depressed mood/affect - LABS Result Diagrams: 02/18/18 04:50 02/18/18 04:50 - SEPSIS Current Stage of Sepsis: Ruled out - FOLLOW UP Follow Up: you may followup your PCP in one week, followup neurologist as out-pt. All your tests including MRI of brain, US of carotid, ECHO, CXR, CT of head, EKG, and your blood work are unremarkable at this time. Should your symptoms return or worsen, you may present ER or call 911, or your PCP for help. - TIME SPENT Time Spent in Discharge (Minutes): 45
== END 2018-02-18 15:22 | disposition home or self-care (01) ==
LOC: ED 15:56 → MS2 18:16
PROVIDERS: ADMIT Nurse Practitioner Gerontology; ATTEND Nurse Practitioner Gerontology
DX: R20.0 Anesthesia of skin (principal); R47.9 Unspecified speech disturbances; R53.1 Weakness; R51 Headache; F31.89 Other bipolar disorder; F41.9 Anxiety disorder, unspecified; E66.9 Obesity, unspecified; Z68.41 Body mass index [BMI] 40.0-44.9, adult
CPT/HCPCS: 36415; 70450; 70551; 71045; 80053; 80061; 80175; 81001; 81025; 82803; 83690; 83735; 84484; 85025; 85379; 93005; 93306; 93880; 96374; 97162; 97165; 99283; 99284; A9270; G0378; J2060; 80307; 80320; 81003; 83721; 87086

== ENCOUNTER 2018-03-24 07:46 | Outpatient (CLI) | payer OTHER, MEDICARE ==
[2018-03-24] MEDS ORDERED: GADOBUTROL 10 MMOL/10 ML VIAL ONE (07:59)
[2018-03-24] MEDS ORDERED: GADOBUTROL 10 MMOL/10 ML VIAL IVP ONE (08:57)
--- NOTE | 2018-03-24 11:00 | MRI Report ---
Reason: NEUROLOGIC ABNORMALITY,FACIAL PARESTHESIA Procedure Date: 03/24/2018 Accession Number: [id number] / [id number] Procedure: MRI - Brain W/WO CPT Code: FULL RESULT: EXAM: MRI BRAIN WITHOUT AND WITH CONTRAST EXAM DATE: 03/24/2018 09:31 AM. CLINICAL HISTORY: Neurologic abnormality, facial paresthesia. Migraines. Stated clinical concern for multiple sclerosis on exam requisition. COMPARISON: Brain w/wo contrast 08/17/2016 8:01 AM. Brain w/o contrast 02/18/2018 9:37 AM. TECHNIQUE: Multiplanar, multisequence T1-weighted and fluid-sensitive MR sequences of the brain were performed. Sequences optimized for white matter evaluation. Other: None. IV Contrast: 10 mL Gadavist. FINDINGS: Stable appearance of the brain. No stroke, hemorrhage, atrophy or hydrocephalus. No evidence for developing white matter disease in a pattern that would meet imaging diagnostic criteria for multiple sclerosis. Two or three tiny punctate foci of nonspecific white matter T2 hyperintensity in the left anterior frontal lobe appear stable. No abnormal brain enhancement. No acute-appearing sinus or mastoid disease. The major arterial skull base flow voids are present. No evidence for major dural venous sinus thrombus. IMPRESSION: No acute abnormality or significant change. MRI imaging findings do not meet criteria of multiple sclerosis. RADIA
== END 2018-03-24 07:47 | disposition home or self-care (01) ==
LOC: DI 07:46
PROVIDERS: ATTEND Family Medicine
DX: R29.90 Unspecified symptoms and signs involving the nervous system (principal); R20.2 Paresthesia of skin
CPT/HCPCS: 70553; A9585

== ENCOUNTER 2019-02-01 09:00 | Outpatient (CLI) | payer OTHER, MEDICARE ==
[2019-02-01 18:57] LABS: BILIRUBIN,URINE NEGATIVE (NEGATIVE); GLUCOSE, URINE (UA) NEGATIVE (NEGATIVE); KETONES,URINE (UA) NEGATIVE (NEGATIVE); LEUKOCYTE ESTERASE, URINE NEGATIVE (NEGATIVE); NITRITE,URINE NEGATIVE (NEGATIVE); OCCULT BLOOD,URINE SMALL (NEGATIVE); PROTEIN,URINE NEGATIVE (NEGATIVE); UROBILINOGEN,URINE 0.2 (NORMAL) E.U./dL (NORMAL)
[2019-02-01 19:00] LABS: BASOPHILS % (AUTO) 0.6 %; EOSINOPHILS # (AUTO) 0.1 10^3/uL (0.0-0.7); EOSINOPHILS % (AUTO) 1.1 %; HGB - HEMOGLOBIN 13.7 g/dL (12.0-16.0); LYMPHOCYTES # (AUTO) 1.7 10^3/uL (1.5-3.5); LYMPHOCYTES % (AUTO) 26.4 %; MEAN CORPUSCULAR HEMOGLOBIN 27.5 pg (27.0-31.0); MEAN CORPUSCULAR HGB CONC 30.3 g/dL (32.0-36.0); MEAN CORPUSCULAR VOLUME 90.6 fL (81.0-99.0); MEAN PLATELET VOLUME 11.2 fL (7.9-10.8); MONOCYTES # (AUTO) 0.4 10^3/uL (0.0-1.0); MONOCYTES % (AUTO) 5.7 %; NEUTROPHILS # (AUTO) 4.3 10^3/uL (1.5-6.6); NEUTROPHILS % (AUTO) 65.9 %; PLT - PLATELET COUNT 260 10^3/uL (130-450); RED BLOOD COUNT 4.99 10^6/uL (4.20-5.40); RED CELL DISTRIBUTION WIDTH 14.7 % (12.0-15.0); WHITE BLOOD COUNT 6.5 x10^3/uL (4.8-10.8)
[2019-02-01 19:10] LABS: CLARITY,URINE CLEAR (CLEAR)
[2019-02-01 19:14] LABS: BACTERIA,URINE Few /HPF (None Seen); RBC,URINE 0-5 /HPF (0-5); SQUAMOUS EPITHELIAL CELL,UR FEW Squamous (<= Few)
[2019-02-01 19:16] LABS: HEMOGLOBIN A1C 0.5 g/dL; HEMOGLOBIN A1C % 5.4 % (4.6-6.2)
[2019-02-01 19:20] LABS: ALBUMIN 4.4 g/dL (3.2-5.5); ALBUMIN/GLOBULIN RATIO 1.6 (1.0-2.2); ALKALINE PHOSPHATASE 44 IU/L (42-121); ALT ALANINE AMINOTRANSFERASE 20 IU/L (10-60); AST ASPARTATE AMINOTRANSFERASE 18 IU/L (10-42); BILIRUBIN,TOTAL 0.7 mg/dL (0.2-1.0); BUN - BLOOD UREA NITROGEN 14 mg/dL (6-20); CALCIUM 8.7 mg/dL (8.5-10.3); CARBON DIOXIDE - CO2 26 mmol/L (21-32); CHLORIDE 107 mmol/L (101-111); CHOL/HDL RATIO 3.6 (<4.4); CHOLESTEROL 174 mg/dL; CREATININE 0.8 mg/dL (0.4-1.0); GFR - MDRD 81 (>89); GLUCOSE 84 mg/dL (70-100); HDL CHOLESTEROL 49 mg/dL; LDL CHOLESTEROL,CALCULATED 110 mg/dL; LDL/HDL RATIO 2.2 (<4.4); SODIUM 140 mmol/L (135-145); TOTAL PROTEIN 7.2 g/dL (6.7-8.2); VLDL CHOLESTEROL 15 mg/dL
== END 2019-02-01 09:01 | disposition home or self-care (01) ==
LOC: LAB.WCP 09:00
PROVIDERS: ATTEND Family Medicine
DX: Z00.00 Encounter for general adult medical examination without abnormal findings (principal); R73.01 Impaired fasting glucose; R32 Unspecified urinary incontinence; F31.9 Bipolar disorder, unspecified
CPT/HCPCS: 36415; 80053; 80061; 81001; 81003; 83036; 83721; 84443; 85025; 87086; 87338

== ENCOUNTER 2020-03-27 10:03 | Outpatient (CLI) | payer OTHER ==
[2020-03-27] MEDS ORDERED: GADOBUTROL 15 MMOL/15 ML VIAL ONE (10:48)
[2020-03-27] MEDS ORDERED: GADOBUTROL 15 MMOL/15 ML VIAL IVP ONE (11:24)
--- NOTE | 2020-03-27 12:31 | MRI Report ---
PROCEDURE: Brain W/WO INDICATIONS: INTRACTABLE MIGRAINE, CEREBRAL CYST CONTRAST: IV CONTRAST: Gadavist ml: 12 TECHNIQUE: Noncontrast axial T1 spin echo, axial T2 fast spin echo, sagittal and axial FLAIR, coronal T2 fast sp in echo, axial gradient echo, axial diffusion and ADC through the brain. After the administration of contrast, axial and coronal T1 spin echo with fat saturation through the brain. COMPARISON: 03/24/2018, 02/18/2018, 08/17/2016 FINDINGS: Image quality: Excellent. CSF spaces: Basal cisterns are patent. No extra-axial fluid collections. Ventricles are normal in size and shape. Brain: No midline shift. No intracranial bleeds or masses. No abnormal intracranial enhancement. There is cerebral volume loss for age. There is periventricular white matter chronic small vessel is chemic change. The brainstem appears normal. Diffusion-weighted images demonstrate no acute ischemi c insults. No chronic ischemic insults. Normal intravascular flow voids are present. Skull and face: Calvarial marrow is normal in signal. Orbits appear normal. Sinuses: Sinuses and mastoids appear clear. Incidental note is made of a right-sided elayne bullosa , with associated mild leftward nasal septal deviation. IMPRESSION: No significant intracranial abnormality can be seen. No intracranial cysts are seen. No masses or abnormal enhancement can be seen. No abnormal white matter lesions are seen. Reviewed by: Pk Salas MD on 03/27/2020 11:30 AM [facility] Approved by: Pk Salas MD on 03/27/2020 11:30 AM [facility] Station ID: [id number]
== END 2020-03-27 10:04 | disposition home or self-care (01) ==
LOC: DI 10:03
PROVIDERS: ATTEND Psychiatry & Neurology Neurology
DX: G43.019 Migraine without aura, intractable, without status migrainosus (principal); G93.0 Cerebral cysts
CPT/HCPCS: 70553; A9585

== ENCOUNTER 2020-04-10 08:00 | Outpatient (CLI) | payer BC ==
[2020-04-10 12:46] LABS: BASOPHILS % (AUTO) 0.4 %; EOSINOPHILS # (AUTO) 0.1 10^3/uL (0.0-0.7); HGB - HEMOGLOBIN 13.5 g/dL (12.0-16.0); LYMPHOCYTES # (AUTO) 1.8 10^3/uL (1.5-3.5); LYMPHOCYTES % (AUTO) 23.9 %; MEAN CORPUSCULAR HEMOGLOBIN 27.2 pg (27.0-31.0); MEAN CORPUSCULAR HGB CONC 30.5 g/dL (32.0-36.0); MEAN CORPUSCULAR VOLUME 89.1 fL (81.0-99.0); MEAN PLATELET VOLUME 11.3 fL (7.9-10.8); MONOCYTES # (AUTO) 0.4 10^3/uL (0.0-1.0); MONOCYTES % (AUTO) 5.4 %; NEUTROPHILS % (AUTO) 68.5 %; PLT - PLATELET COUNT 263 10^3/uL (130-450); RED BLOOD COUNT 4.96 10^6/uL (4.20-5.40); RED CELL DISTRIBUTION WIDTH 15.4 % (12.0-15.0); WHITE BLOOD COUNT 7.4 x10^3/uL (4.8-10.8)
[2020-04-10 13:14] LABS: ALBUMIN 4.3 g/dL (3.2-5.5); ALBUMIN/GLOBULIN RATIO 1.7 (1.0-2.2); ALKALINE PHOSPHATASE 49 IU/L (42-121); ALT ALANINE AMINOTRANSFERASE 32 IU/L (10-60); AST ASPARTATE AMINOTRANSFERASE 19 IU/L (10-42); BILIRUBIN,TOTAL 0.5 mg/dL (0.2-1.0); BUN - BLOOD UREA NITROGEN 20 mg/dL (6-20); CALCIUM 9.8 mg/dL (8.5-10.3); CARBON DIOXIDE - CO2 25 mmol/L (21-32); CHLORIDE 102 mmol/L (101-111); CHOL/HDL RATIO 3.6 (<4.4); CHOLESTEROL 204 mg/dL; CREATININE 0.8 mg/dL (0.4-1.0); GLUCOSE 112 mg/dL (70-100); HDL CHOLESTEROL 57 mg/dL; LDL CHOLESTEROL,CALCULATED 128 mg/dL; LDL/HDL RATIO 2.2 (<4.4); TOTAL PROTEIN 6.9 g/dL (6.7-8.2); VLDL CHOLESTEROL 19 mg/dL
[2020-04-10 15:58] LABS: HEMOGLOBIN A1c% 5.2 % (4.27-6.07)
== END 2020-04-10 23:59 | disposition home or self-care (01) ==
LOC: LAB.WCP 08:00
PROVIDERS: ATTEND Family Medicine
DX: F31.9 Bipolar disorder, unspecified (principal); E78.1 Pure hyperglyceridemia; R73.01 Impaired fasting glucose
CPT/HCPCS: 36415; 80053; 80061; 80175; 83036; 83721; 84443; 85025

== ENCOUNTER 2020-04-17 13:23 | Emergency (ER) | payer BC ==
--- NOTE | 2020-04-17 13:41 | ED Physician Documentation ---
History of Present Illness - Stated complaint Stated Complaint: SHOOTING ABD PX - Chief complaint Chief Complaint: Abd Pain - Additonal information Additional information: 39-year-old female presents the emergency department for evaluation of acute left flank pain. Began last night and she reports that it radiates towards her back under her rib cage. She states the pain feels similar to when she had a cholecystectomy many years ago. She denies any hematuria dysuria or changes in pain with micturition. Patient reports a history of severe GERD. States that she vomits every day unless she takes her omeprazole. Past surgical history: Cholecystectomy tubal ligation. meds: lamotrigine, omeprazole Review of Systems Constitutional: reports: Reviewed and negative Eyes: reports: Reviewed and negative Ears: reports: Reviewed and negative Nose: reports: Rhinorrhea / runny nose Throat: reports: Reviewed and negative Cardiac: reports: Reviewed and negative Respiratory: reports: Reviewed and negative GI: reports: Abdominal Pain, Nausea, Vomiting : denies: Dysuria, Hematuria Skin: denies: Rash, Lesions Musculoskeletal: reports: Reviewed and negative Neurologic: reports: Reviewed and negative PD PAST MEDICAL HISTORY - Past Medical History Past Medical History: Yes Cardiovascular: None Respiratory: None Neuro: Other Endocrine/Autoimmune: None GI: GERD : None HEENT: None Psych: Depression, Anxiety, Bipolar disorder, Panic attacks, Post traumatic stress disorder Musculoskeletal: None Derm: None - Past Surgical History Past Surgical History: No 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, Other - Present Medications Home Medications: Ambulatory Orders Medication Instructions Recorded Confirmed lamoTRIgine [Lamictal] 300 mg PO QPM 08/29/14 04/17/20 ALPRAZolam [Alprazolam] 1 mg PO DAILY PRN 02/18/18 04/17/20 - Allergies Allergies/Adverse Reactions: Allergies Allergy/AdvReac Type Severity Reaction Status Date / Time amoxicillin Allergy Intermediate Hives Verified 04/17/20 13:26 - Social History Does the pt smoke?: No Smoking Status: Never smoker Does the pt drink ETOH?: No Does the pt have substance abuse?: No - Immunizations Immunizations are current?: No Immunizations: TDAP >10years/unknown - POLST Patient has POLST: No POLST Status: Full Code PD ED PE EXPANDED - General General: Alert, No acute distress, Other (obese) - Cardiac Cardiac: Regular Rate, Regular Rhythm, Radial strong equal, Cap refill < 2 sec - Respiratory Respiratory: Clear to ausultation arlen. No: Distress, Labored - Abdomen Abdomen: Normal Bowel sounds, Other (Exam somewhat limited by body habitus. Left flank pain without guarding or rebound. No CVA tenderness) - Derm Derm: Normal color, Warm and dry - Extremities Extremities: Normal. No: Deformity, Tenderness - Neuro Neuro: Alert and Oriented X 3, CNII-XII intact - GCS Eye Opening: Spontaneous Motor: Obeys Commands Verbal: Oriented Total: 15 Results - Vitals Vitals: Vital Signs - 24 hr 04/17/20 04/17/20 13:27 13:29 Temperature 37.3 C 37.3 C Heart Rate 93 93 Respiratory 19 19 Rate Blood Pressure 146/97 H 146/97 H O2 Saturation 98 98 Oxygen O2 Source [With Activity] Nasal cannula O2 Source Room air - Labs Labs: Laboratory Tests 04/17/20 04/17/20 04/17/20 13:31 14:05 14:05 WBC 8.4 RBC 4.97 Hgb 13.3 Hct 43.3 MCV 87.1 MCH 26.8 L MCHC 30.7 L RDW 14.9 Plt Count 232 MPV 10.3 Neut # (Auto) 6.2 Lymph # (Auto) 1.7 Clare # (Auto) 0.4 Eos # (Auto) 0.0 Baso # (Auto) 0.0 Absolute Nucleated RBC 0.00 Nucleated RBC % 0.0 Sodium 139 Potassium 3.8 Chloride 104 Carbon Dioxide 21 Anion Gap 14.0 H BUN 16 Creatinine 0.8 Estimated GFR (MDRD) 81 L Glucose 87 Calcium 9.1 Total Bilirubin 0.6 AST 20 ALT 23 Alkaline Phosphatase 55 Total Protein 7.6 Albumin 4.4 Globulin 3.2 Albumin/Globulin Ratio 1.4 Lipase 33 Urine Color YELLOW Urine Clarity CLEAR Urine pH 6.0 Ur Specific Hessel >=1.030 H Urine Protein NEGATIVE Urine Glucose (UA) NEGATIVE Urine Ketones 15 H Urine Occult Blood SMALL H Urine Nitrite NEGATIVE Urine Bilirubin NEGATIVE Urine Urobilinogen 0.2 (NORMAL) Ur Leukocyte Esterase NEGATIVE Urine RBC 6-10 H Urine WBC 0-3 Ur Squamous Epith Cells FEW Squamous Urine Bacteria Rare Urine Mucus Few Strands Ur Microscopic Review INDICATED Urine Culture Comments NOT INDICATED Urine HCG, Qual NEGATIVE - Rads (name of study) CT abd Radiology: Final report received (No evidence of acute abdominal process. Remote cholecystectomy. My normal mild splenomegaly unchanged.) PD MEDICAL DECISION MAKING - ED course Complexity details: reviewed results, re-evaluated patient, considered differential, d/w patient ED course: 39-year-old female presents emergency department for evaluation of acute onset left flank pain. Screening labs reveal no significant abnormalities. Her urine does have some mild hematuria. Patiently history and presentation I was most suspicious for a renal colic. CT of the abdomen did not reveal any hydroureter hydronephrosis. No obvious obstructing stones are seen. Pain was improved following Dilaudid and Toradol here in the emergency department. Given the flank pain and hematuria I am still suspicious that she may have passed a stone on seen on CAT scan. Will recommend that she take ibuprofen and continue to follow-up with her primary care doctor Dr. Mathew on the first as scheduled. She does endorse that she daily has acid reflux into her esophagus and at night when sleeping. I discussed with her that she should be referred to GI for further evaluation of this but to continue the omeprazole. Departure - Departure Disposition: 01 Home, Self Care Clinical Impression: Left flank pain Hematuria Qualifiers: Hematuria type: other microscopic Qualified Code(s): R31.29 - Other microscopic hematuria; R31.2 - Other microscopic hematuria GERD (gastroesophageal reflux disease) Qualifiers: Esophagitis presence: esophagitis presence not specified Qualified Code(s): K21.9 - Gastro-esophageal reflux disease without esophagitis Condition: Stable Record reviewed to determine appropriate education?: Yes Comments: You were seen in the emergency department today for left flank pain. As we discussed your screening labs are essentially unremarkable. However your urine did show a small amount of blood. There is no findings consistent with infection. We did do a CT of the abdomen and do not find any obvious kidney stones or swelling in the ureters or kidneys. This does not mean that you did not have a stone it may mean that you are passing 1 or is too small to see on CAT scan. I would like you to take ibuprofen with food 2-3 times a day for flank pain. Return to the emergency department if you have fevers, uncontrolled vomiting or feel that the pain is worsening. You also discussed with me that you have daily acid reflux. This is not normal. Discussed this with your primary care provider Dr. Mathew. You may need to be referred to the bird raiser for an EGD.
[2020-04-17 13:54] LABS: BILIRUBIN,URINE NEGATIVE (NEGATIVE); CLARITY,URINE CLEAR (CLEAR); GLUCOSE, URINE (UA) NEGATIVE (NEGATIVE); KETONES,URINE (UA) 15 mg/dL (NEGATIVE); LEUKOCYTE ESTERASE, URINE NEGATIVE (NEGATIVE); NITRITE,URINE NEGATIVE (NEGATIVE); OCCULT BLOOD,URINE SMALL (NEGATIVE); PROTEIN,URINE NEGATIVE (NEGATIVE); UROBILINOGEN,URINE 0.2 (NORMAL) E.U./dL (NORMAL)
[2020-04-17 13:57] LABS: HCG UR QUAL NEGATIVE
[2020-04-17] MEDS ORDERED: HYDROmorphone 1 MG/ML CARPUJECT IVP STA (13:57)
[2020-04-17 14:11] LABS: BASOPHILS % (AUTO) 0.2 %; EOSINOPHILS % (AUTO) 0.5 %; HGB - HEMOGLOBIN 13.3 g/dL (12.0-16.0); LYMPHOCYTES # (AUTO) 1.7 10^3/uL (1.5-3.5); MEAN CORPUSCULAR HEMOGLOBIN 26.8 pg (27.0-31.0); MEAN CORPUSCULAR HGB CONC 30.7 g/dL (32.0-36.0); MEAN CORPUSCULAR VOLUME 87.1 fL (81.0-99.0); MEAN PLATELET VOLUME 10.3 fL (7.9-10.8); MONOCYTES # (AUTO) 0.4 10^3/uL (0.0-1.0); MONOCYTES % (AUTO) 4.8 %; NEUTROPHILS # (AUTO) 6.2 10^3/uL (1.5-6.6); NEUTROPHILS % (AUTO) 73.9 %; PLT - PLATELET COUNT 232 10^3/uL (130-450); RED BLOOD COUNT 4.97 10^6/uL (4.20-5.40); RED CELL DISTRIBUTION WIDTH 14.9 % (12.0-15.0); WHITE BLOOD COUNT 8.4 x10^3/uL (4.8-10.8)
[2020-04-17 14:13] LABS: BACTERIA,URINE Rare /HPF (None Seen); MUCUS,URINE Few Strands; SQUAMOUS EPITHELIAL CELL,UR FEW Squamous (<= Few)
[2020-04-17 14:25] LABS: ALBUMIN 4.4 g/dL (3.2-5.5); ALBUMIN/GLOBULIN RATIO 1.4 (1.0-2.2); BILIRUBIN,TOTAL 0.6 mg/dL (0.2-1.0); CALCIUM 9.1 mg/dL (8.5-10.3); CREATININE 0.8 mg/dL (0.4-1.0); TOTAL PROTEIN 7.6 g/dL (6.7-8.2)
[2020-04-17] MEDS ORDERED: IOVERSOL 320 100 ML VIAL IVP ONE ×2 (14:34→15:05)
--- NOTE | 2020-04-17 15:04 | CT Report ---
PROCEDURE: Abdomen/Pelvis W INDICATIONS: left flank pain CONTRAST: IV CONTRAST: Optiray 320 ml: 100 PO CONTRAST: *NO PO CONTRAST TECHNIQUE: After the administration of intravenous contrast, 5 mm thick sections acquired from the diaphragms to the symphysis. 5 mm thick coronal and sagittal reformats were acquired. For radiation dose reducti on, the following was used: automated exposure control, adjustment of mA and/or kV according to santana ent size. COMPARISON: None. FINDINGS: Image quality: Excellent. ABDOMEN: Lung bases: Lung bases are clear. Heart size is normal. Small hiatal hernia. Solid organs: Spleen is normal in size and enhancement. Gallbladder is surgically absent. Mild spleno megaly, as before. The spleen measures 14.7 cm. Biliary system is non dilated. Pancreas enhances no rmally. No adrenal nodules. Kidneys demonstrate normal size and enhancement, without hydronephrosis . Calcification anterior to the left kidney, unchanged. Peritoneum and bowel: Bowel loops demonstrate normal wall thickness and caliber. No free fluid or a ir. Nodes and vessels: No retroperitoneal or mesenteric adenopathy by size criteria. Aorta and inferior vena cava are normal in size. Miscellaneous: Small periumbilical hernia containing fat. PELVIS: Genitourinary: Bladder wall thickness is normal. Miscellaneous: No inguinal hernias or adenopathy. Bones: No suspicious bony lesions. No vertebral body compression fractures. IMPRESSION: 1. No evidence of acute abdominal process. 2. Remote cholecystectomy. 4. Mild splenomegaly, unchanged. Reviewed by: Nir Booker MD on 04/17/2020 3:03 PM PST Approved by: Nir Booker MD on 04/17/2020 3:03 PM PST Station ID: [id number]
[2020-04-17] MEDS ORDERED: KETOROLAC 30 MG/ML VIAL IVP STA (15:12)
[2020-04-17 15:22] VITALS: BP 114/70
== END 2020-04-17 15:30 | disposition home or self-care (01) ==
LOC: ED 13:23
DX: R10.9 Unspecified abdominal pain (principal); R31.9 Hematuria, unspecified; K21.9 Gastro-esophageal reflux disease without esophagitis
CPT/HCPCS: 36415; 74177; 80053; 81001; 81025; 83690; 85025; 96374; 96375; 99284; J1170; Q9967; 81003; 87086

== ENCOUNTER 2020-06-07 07:00 | Outpatient (CLI) | payer BC | END 2020-06-07 23:59 | disposition home or self-care (01) | LOC: COV 07:00 | PROVIDERS: ATTEND Surgery | DX: Z01.812 Encounter for preprocedural laboratory examination (principal); K21.9 Gastro-esophageal reflux disease without esophagitis; R13.10 Dysphagia, unspecified; F41.0 Panic disorder [episodic paroxysmal anxiety]; F43.10 Post-traumatic stress disorder, unspecified; Z92.83 Personal history of failed moderate sedation; Z20.822 Contact with and (suspected) exposure to COVID-19 ==

== ENCOUNTER 2020-06-11 10:06 | Day surgery (SDC) | payer BC ==
--- OUTSIDE RECORDS SUMMARY | 2020-06-11 10:09 | EXTERNAL MEDICAL SUMMARY RPT | Continuity of Care Document ---
:1980 Demographics Phone Unavailable Preferred Language Unknown Marital Status Unknown Nondenominational Affiliation Unknown Race Unknown Ethnic Group Unknown Author Organization [facility] Address [address] [place] [address] Phone Social History date description facility [id number]
[2020-06-11] MEDS ORDERED: LACTATED RINGERS 1,000 ML IV ONE (11:03)
--- NOTE | 2020-06-11 11:28 | ANESTHESIA ---
Pre-Anesthesia VS, & Labs - Diagnosis GERD - Procedure EGD Vital Signs: Temp Pulse Resp BP Pulse Ox 36.7 C 90 18 138/96 H 98 06/11/20 10:35 06/11/20 10:35 06/11/20 10:35 06/11/20 10:35 06/11/20 10:35 Height: 5 ft 2.5 in Weight (kg): 118 kg Body Mass Index: 46.7 BMI Classification: Morbidly Obese - NPO >8 hours - Is Patient ?: No, Waiver signed Home Medications and Allergies Home Medications: Ambulatory Orders Gabapentin [Neurontin] 300 mg PO DAILY 06/10/20 lamoTRIgine [Lamictal] 300 mg PO QPM 08/29/14 ALPRAZolam [Alprazolam] 1 mg PO DAILY PRN 02/18/18 Gabapentin [Neurontin] 300 mg PO DAILY 06/10/20 Allergies/Adverse Reactions: Allergies Allergy/AdvReac Type Severity Reaction Status Date / Time amoxicillin Allergy Intermediate Hives Verified 04/17/20 13:26 Anes History & Medical History - Anesthetic History Anesthesia Complications: reports: No previous complications Family history of Anesthesia Complications: Denies Family history of Malignant Hyperthermia: Denies - Medical History Cardiovascular: reports: None Pulmonary: reports: None Gastrointestinal: reports: GERD Urinary: reports: None Neuro: reports: Other Musculoskeletal: reports: Fibromyalgia Endocrine/Autoimmune: reports: None Skin: reports: None Smoking Status: Never smoker - Surgical History General: reports: Cholecystectomy Gynecologic: reports: Tubal ligation Exam General: Alert, Oriented x3, Cooperative Dental: WNL Mouth Openin Fingerbreadth Neck Mobility: Normal Mallampati classification: II Respiratory: Lungs clear Cardiovascular: Regular rate Plan Anesthesia Type: General, Total IV Consent for Procedure(s) Verified and Reviewed: Yes Code Status: Attempt Resuscitation ASA classification: 3-Severe systemic disease Is this case an emergency?: No
[2020-06-11] MEDS ORDERED: fentaNYL 100 MCG/2 ML VIAL IVP PRN (11:32)
[2020-06-11] MEDS ORDERED: ATROPINE ABBOJECT 1 MG/10 ML SYRINGE IVP PRN (11:32)
[2020-06-11] MEDS ORDERED: METOCLOPRAMIDE 10 MG/2 ML VIAL IVP PRN (11:32)
[2020-06-11] MEDS ORDERED: HYDROmorphone 0.5 MG/0.5 ML SYRINGE IVP PRN (11:32)
[2020-06-11] MEDS ORDERED: NALOXONE 0.4 MG/ML VIAL IVP PRN (11:32)
[2020-06-11] MEDS ORDERED: MORPHINE 2 MG/ML CARPUJECT IVP PRN (11:32)
[2020-06-11] MEDS ORDERED: ePHEDrine 50 MG/ML VIAL IVP PRN (11:32)
[2020-06-11] MEDS ORDERED: ONDANSETRON 4 MG/2 ML VIAL IVP PRN (11:32)
[2020-06-11] MEDS ORDERED: LIDOCAINE-MPF 2% 5 ML VIAL ONE (11:39)
[2020-06-11] MEDS ORDERED: PROPOFOL 200 MG/20 ML VIAL IVP ONE (11:39)
[2020-06-11] MEDS ORDERED: MIDAZOLAM 2 MG/2 ML VIAL ONE (11:57)
[2020-06-11] MEDS ORDERED: LACTATED RINGERS 1,000 ML IV SCH (12:00)
[2020-06-11] MEDS ORDERED: LACTATED RINGERS 800 ML IV ONE (12:35)
[2020-06-11 13:14] VITALS: BP 124/72
--- NOTE | 2020-06-11 14:17 | ANESTHESIA POST OP EVALUATION ---
Anesthesia Post Eval - Post Anesthesia Eval Vitals: Last Vital Signs Temp 36.2 C L 06/11/20 13:12 Pulse 79 06/11/20 13:12 Resp 16 06/11/20 13:12 BP 124/72 06/11/20 13:12 Pulse Ox 100 06/11/20 13:12 CV Function Including HR & BP: Stable Pain Control: Satisfactory Nausea & Vomiting: Negative Mental Status: Baseline Respiratory Status: Airway Patent Hydration Status: Satisfactory Anesthesia Complications: None
== END 2020-06-11 10:07 | disposition home or self-care (01) ==
LOC: SDS 10:06
PROVIDERS: ATTEND Surgery
PROC: 0DB78ZX Excision of Stomach, Pylorus, Via Natural or Artificial Opening Endoscopic, Diagnostic (ICD-10-PCS; 2020-06-11)
PROC: 0DB38ZX Excision of Lower Esophagus, Via Natural or Artificial Opening Endoscopic, Diagnostic (ICD-10-PCS; 2020-06-11)
PROC: 0DB48ZX Excision of Esophagogastric Junction, Via Natural or Artificial Opening Endoscopic, Diagnostic (ICD-10-PCS; 2020-06-11)
PROC: 0DB98ZX Excision of Duodenum, Via Natural or Artificial Opening Endoscopic, Diagnostic (ICD-10-PCS; principal; 2020-06-11 11:15)
DX: K21.9 Gastro-esophageal reflux disease without esophagitis (principal); R10.13 Epigastric pain; K29.50 Unspecified chronic gastritis without bleeding; K44.9 Diaphragmatic hernia without obstruction or gangrene; E66.01 Morbid (severe) obesity due to excess calories; Z68.42 Body mass index [BMI] 45.0-49.9, adult; F43.10 Post-traumatic stress disorder, unspecified; Z92.83 Personal history of failed moderate sedation
CPT/HCPCS: 43239; J7120

== ENCOUNTER 2020-07-20 10:23 | Outpatient (CLI) | payer BC ==
--- NOTE | 2020-07-20 20:45 | XRAY Report ---
PROCEDURE: Shoulder 2 View RT INDICATIONS: RIGHT SHOULDER PAIN TECHNIQUE: 2 views of the shoulder were acquired. COMPARISON: None. FINDINGS: Bones: No fractures or dislocations. No suspicious bony lesions. Visualized ribs appear intact. Soft tissues: Mild apparent soft tissue calcification can be seen posteriorly on the lateral view. Th e visualized lung demonstrates a normal appearance. IMPRESSION: A cause of shoulder pain is not identified on these images. Apparent soft tissue calcification can be seen within the soft tissues posteriorly. If it would be helpful for clinical management decision making, please consider a dedicated, schedule d shoulder MRI for further evaluation (assuming that there is no contraindication). Reviewed by: Pk Salas MD on 07/20/2020 7:44 PM GEORGETTE Approved by: Pk Salas MD on 07/20/2020 7:44 PM GEORGETTE Station ID: [id number]
== END 2020-07-20 10:24 | disposition home or self-care (01) ==
LOC: DI.N 10:23
PROVIDERS: ATTEND Family Medicine
DX: S46.011A Strain of muscle(s) and tendon(s) of the rotator cuff of right shoulder, initial encounter (principal)

== ENCOUNTER 2020-12-14 15:47 | Emergency (ER) | payer BC ==
[2020-12-14 16:27] LABS: BASOPHILS % (AUTO) 0.5 %; EOSINOPHILS # (AUTO) 0.1 10^3/uL (0.0-0.7); EOSINOPHILS % (AUTO) 0.9 %; HCT - HEMATOCRIT 45.4 % (37.0-47.0); HGB - HEMOGLOBIN 14.1 g/dL (12.0-16.0); LYMPHOCYTES % (AUTO) 24.2 %; MEAN CORPUSCULAR HGB CONC 31.1 g/dL (32.0-36.0); MEAN CORPUSCULAR VOLUME 86.8 fL (81.0-99.0); MEAN PLATELET VOLUME 10.7 fL (7.9-10.8); MONOCYTES # (AUTO) 0.5 10^3/uL (0.0-1.0); MONOCYTES % (AUTO) 6.4 %; NEUTROPHILS # (AUTO) 5.5 10^3/uL (1.5-6.6); NEUTROPHILS % (AUTO) 67.6 %; PLT - PLATELET COUNT 256 10^3/uL (130-450); RED BLOOD COUNT 5.23 10^6/uL (4.20-5.40); RED CELL DISTRIBUTION WIDTH 14.8 % (12.0-15.0); WHITE BLOOD COUNT 8.1 x10^3/uL (4.8-10.8)
[2020-12-14] MEDS ORDERED: SUCRALFATE 1 GM/10 ML UDC PO STA (16:38)
[2020-12-14] MEDS ORDERED: MAG HYDROX/AL HYDROX/SIMETH 30 ML UDC PO STA (16:38)
--- NOTE | 2020-12-14 16:41 | XRAY Report ---
PROCEDURE: Chest 1 View X-Ray INDICATIONS: Chest Pain TECHNIQUE: One view of the chest was acquired. COMPARISON: 02/18/2018 FINDINGS: Surgical changes and devices: None. Lungs and pleura: No pleural effusions or pneumothorax. Lungs are clear. Mediastinum: Mediastinal contours appear normal. Heart size is normal. Bones and chest wall: No suspicious bony lesions. Overlying soft tissues appear unremarkable. IMPRESSION: Portable chest within normal limits for age. Reviewed by: Pk Salas MD on 12/14/2020 3:40 PM AKDT Approved by: Pk Salas MD on 12/14/2020 3:40 PM EMDT Station ID: [id number]
[2020-12-14 16:43] LABS: ALBUMIN 4.3 g/dL (3.2-5.5); ALBUMIN/GLOBULIN RATIO 1.4 (1.0-2.2); BILIRUBIN,TOTAL 0.4 mg/dL (0.2-1.0); CREATININE 0.8 mg/dL (0.4-1.0); POTASSIUM 3.7 mmol/L (3.5-5.0); TOTAL PROTEIN 7.3 g/dL (6.7-8.2)
--- NOTE | 2020-12-14 16:47 | ED Physician Documentation ---
PD HPI CHEST PAIN - Stated complaint Stated Complaint: CHEST PX - Chief complaint Chief Complaint: Cardiac - History obtained from History obtained from: Patient - History of Present Illness Timing - onset: Today Pain level max: 6 Pain level now: 3 Quality: Pressure Improved by: Rest Worsened by: Movement, Palpation Associated symptoms: No: Shortness of air, Diaphoresis, Nausea, Vomiting, Feeling faint / dizzy, General Weakness, Palpitations - Additional information Additional information: Patient is a 40-year-old female who presents to the emergency department with Chest pain intermittently for the past several days. She states she received a Covid vaccination 2 weeks ago, about 4 days later started to develop intermittent chest tightness. She states that it feels like a pressure in the center of her chest, worse with movement, better with rest. She does not recall any injuries. No fevers. No coughing. Occasionally it radiates towards the right shoulder. No abdominal pain. Does have a history of severe GERD and gastritis. Is on omeprazole for this. Has had a cholecystectomy. She states that she did have a blood clot in her right hand, dorsum several years ago. She also states that her father has a clotting disorder. She states she does not have a blood clotting disorder that she is aware of. No calf pain or leg swelling. She was seen at urgent care today and sent here for further evaluation. Currently she rates the pressure is a 2 out of 10. 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 : None HEENT: None Psych: Depression, Anxiety, Bipolar disorder, Panic attacks, Post traumatic stress disorder Musculoskeletal: Fibromyalgia Derm: None - Past Surgical History Past Surgical History: No 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: Yes Substance Use and Type: Marijuana - Immunizations Immunizations are current?: No Immunizations: TDAP >10years/unknown - POLST Patient has POLST: No POLST Status: Full Code PD ED PE NORMAL - Vitals Vital signs reviewed: Yes - General General: Alert and oriented X 3, No acute distress - HEENT HEENT: Moist mucous membranes - Neck Neck: Supple, no meningeal sign - Cardiac Cardiac: RRR, Strong equal pulses - Respiratory Respiratory: No respiratory distress, Clear bilaterally, Other (TTP over the ant erior chest wall, reproduces her pain. Tender along the costochondral junction.) - Abdomen Abdomen: Soft, Non tender, Non distended - Back Back: No CVA TTP, No spinal TTP - Derm Derm: Warm and dry - Extremities Extremities: No edema, No calf tenderness / cord - Neuro Neuro: Alert and oriented X 3 Results - Vitals Vitals: Vital Signs - 24 hr 12/14/20 12/14/20 12/14/20 16:01 16:27 17:54 Temperature 36.6 C 36.4 C L Heart Rate 91 107 H 93 Respiratory 18 22 24 Rate Blood Pressure 150/123 H 144/86 H 149/84 H O2 Saturation 99 100 100 Oxygen O2 Source [] Nasal cannula O2 Source Room air - EKG (time done) 1549 Rate: Rate (enter#) (88) Rhythm: NSR Harris: Normal Intervals: Normal AL QRS: Normal Ischemia: Normal ST segments - Labs Labs: Laboratory Tests 12/14/20 12/14/20 12/14/20 16:23 16:23 16:23 WBC 8.1 RBC 5.23 Hgb 14.1 Hct 45.4 MCV 86.8 MCH 27.0 MCHC 31.1 L RDW 14.8 Plt Count 256 MPV 10.7 Neut # (Auto) 5.5 Lymph # (Auto) 2.0 [place] # (Auto) 0.5 Eos # (Auto) 0.1 Baso # (Auto) 0.0 Absolute Nucleated RBC 0.00 Nucleated RBC % 0.0 D-Dimer Sodium 139 Potassium 3.7 Chloride 104 Carbon Dioxide 24 Anion Gap 11.0 BUN 15 Creatinine 0.8 Estimated GFR (MDRD) 80 L Glucose 81 Calcium 9.0 Total Bilirubin 0.4 AST 18 ALT 25 Alkaline Phosphatase 49 Troponin I High Sens < 2.3 L Total Protein 7.3 Albumin 4.3 Globulin 3.0 Albumin/Globulin Ratio 1.4 Lipase 40 12/14/20 16:57 WBC RBC Hgb Hct MCV MCH MCHC RDW Plt Count MPV Neut # (Auto) Lymph # (Auto) [place] # (Auto) Eos # (Auto) Baso # (Auto) Absolute Nucleated RBC Nucleated RBC % D-Dimer 334.0 H Sodium Potassium Chloride Carbon Dioxide Anion Gap BUN Creatinine Estimated GFR (MDRD) Glucose Calcium Total Bilirubin AST ALT Alkaline Phosphatase Troponin I High Sens Total Protein Albumin Globulin Albumin/Globulin Ratio Lipase - Rads (name of study) cxr Radiology: Final report received, EMP read contemporaneously, See rad report (no acute disease.) CT PA Radiology: Final report received, EMP read contemporaneously, See rad report PD MEDICAL DECISION MAKING - ED course Complexity details: reviewed results, re-evaluated patient, considered differential (No ST elevation MA, no aortic dissection, no PE, no tension pneumothorax, no aortic aneurysm), d/w patient ED course: Patient is a 40-year-old female with atypical chest pain, likely chest wall pain. Likely costochondritis. We will have her utilize pain medication as needed for home and have her follow-up with her doctor. No evidence of myocarditis or pericarditis. No PE. Patient counseled regarding signs and symptoms for which I believe and urgent re-evaluation would be necessary. Patient with good understanding of and agreement to plan and is comfortable going home at this time This document was made in part using voice recognition software. While efforts are made to proofread this document, sound alike and grammatical errors may occur. IMPRESSION: No findings of pulmonary embolism can be seen. Incidental note is made of: Small to moderate hiatal hernia Cholecystectomy Enlarged, fatty liver Prominent adrenal glands, without focal nodules seen. Departure - Departure Disposition: Home, Self Care Clinical Impression: Chest wall pain Chest pain Qualifiers: Chest pain type: unspecified Qualified Code(s): R07.9 - Chest pain, unspecified Condition: Good Instructions: ED Chest Pain Atypical Unkn Cause, ED Chest Pain Costochondritis Follow-Up: Adina Mathew DO [Primary Care Provider] - Within 1 week Comments: Your EKG, troponin, CT pulmonary angiogram are all normal tonight. I would utilize Tylenol as needed for pain and follow-up with your doctor for further care including a cardiac stress test. Return if you worsen.
[2020-12-14] MEDS ORDERED: IOVERSOL 320 100 ML VIAL IVP ONE ×2 (17:24→17:45)
[2020-12-14 17:55] VITALS: BP 149/84
--- NOTE | 2020-12-14 18:13 | CT Report ---
PROCEDURE: ANGIO CHEST W/WO INDICATIONS: chest pain, possible PE CONTRAST: IV CONTRAST: Optiray 320 ml: 80 PO CONTRAST: *NO PO CONTRAST TECHNIQUE: After the administration of intravenous contrast, 2 mm axial images were acquired from the pulmonary apices to the posterior costophrenic angles during the arterial phase. In addition, 1 mm lung kernel and 5 mm soft tissue kernel reconstructions were performed. 3-dimensional coronal oblique maximum int ensity projection (MIP) reformats, 8 mm axial MIP, and 5 mm coronal and sagittal MPR reformats were t hen performed through the thorax. For radiation dose reduction, the following was used: automated exp osure control, adjustment of mA and/or kV according to patient size. COMPARISON: Correlation is made with abdomen pelvis CT, 04/17/2020 FINDINGS: Image quality: Study is limited by bolus timing and body habitus. Pulmonary arteries: The density within the pulmonary arteries measures 210 Hounsfield units. Density measurements of greater than 250 are considered to be ideal for evaluation of pulmonary embolism. On this study, no large or central pulmonary oblique and be seen. The pulmonary arteries do not appear enlarged. Lungs and pleura: Lungs are clear. No pleural effusions or pneumothorax. Central and peripheral ai rways are patent. Mediastinum: Heart size is normal, without pericardial effusion. No mediastinal or hilar adenopathy . Thoracic aorta is normal in caliber and enhancement. Esophagus is normal in caliber.There is a sm all to moderate hiatal hernia. Bones and chest wall: No suspicious bony lesions. Ribs and thoracic spine appear intact throughout. No axillary or supraclavicular adenopathy. The thyroid is normal in size and there are no incident al findings. Abdomen: Cholecystectomy clips are seen. An enlarged, fatty infiltrated liver can be seen. Prominenc e of the adrenal glands can be seen, without radha, focal nodules. A prominent spleen is again seen. The visualized portions of the upper abdominal structures are otherwise within normal limits. IMPRESSION: No findings of pulmonary embolism can be seen. Incidental note is made of: Small to moderate hiatal hernia Cholecystectomy Enlarged, fatty liver Prominent adrenal glands, without focal nodules seen. Reviewed by: Pk Salas MD on 12/14/2020 5:12 PM GEORGETTE Approved by: Pk Salas MD on 12/14/2020 5:12 PM CTTETE Station ID: [id number]
== END 2020-12-14 18:36 | disposition home or self-care (01) ==
LOC: ED 15:47
DX: R07.89 Other chest pain (principal)
CPT/HCPCS: 36415; 71045; 71275; 80053; 83690; 84484; 85025; 85379; 93005; 99284; A9270; Q9967

== ENCOUNTER 2021-07-04 16:08 | Outpatient (CLI) | payer BC ==
--- NOTE | 2021-07-04 16:47 | XRAY Report ---
PROCEDURE: Knee 3 View RT INDICATIONS: KNEE PAIN, RIGHT TECHNIQUE: 3 views of the right knee(s) were acquired. COMPARISON: None. FINDINGS: BONES/JOINT: No acute, displaced fracture or dislocation. No substantial suprapatellar joint effusio n. SOFT TISSUES: No significant abnormality. IMPRESSION: 1.No acute osseous abnormality. If the patient's pain persists, consider CT or MR imaging. Reviewed by: Mick Ledesma MD on 07/04/2021 4:46 PM PDT Approved by: Mick Ledesma MD on 07/04/2021 4:46 PM PDT Station ID: [id number]
== END 2021-07-04 16:09 | disposition home or self-care (01) ==
LOC: DI.N 16:08
PROVIDERS: ATTEND Physician Assistant
DX: M25.561 Pain in right knee (principal)

== ENCOUNTER 2021-12-01 08:00 | Outpatient (CLI) | payer BC | END 2021-12-01 23:59 | disposition home or self-care (01) | LOC: LAB.N 08:00 | PROVIDERS: ATTEND Registered Nurse | DX: R05.1 Acute cough (principal) | CPT/HCPCS: 87275; 87276 ==

== ENCOUNTER 2021-12-03 09:58 | Outpatient (CLI) | payer BC ==
--- NOTE | 2021-12-03 16:25 | XRAY Report ---
PROCEDURE: Chest 2 View X-Ray INDICATIONS: COUGH TECHNIQUE: 2 view(s) of the chest. COMPARISON: None. FINDINGS: Surgical changes and devices: None. Lungs and pleura: No pleural effusions or pneumothorax. Lungs are clear. Mediastinum: Mediastinal contours are normal. Heart size is normal. Bones and chest wall: No suspicious bony abnormalities. Soft tissues appear unremarkable. IMPRESSION: No acute pulmonary process. Reviewed by: Tootie Littlejohn MD on 12/03/2021 4:24 PM PDT Approved by: Tootie Littlejohn MD on 12/03/2021 4:24 PM PDT Station ID: [id number]
== END 2021-12-03 23:59 | disposition home or self-care (01) ==
LOC: DI.N 09:58
PROVIDERS: ATTEND Registered Nurse
DX: R05.1 Acute cough (principal)

== ENCOUNTER 2022-04-17 15:40 | Outpatient (CLI) | payer BC ==
[2022-04-17] MEDS ORDERED: iohexoL-300 100 ML VIAL ONE (15:58)
[2022-04-17 17:05] LABS: BASOPHILS % (AUTO) 0.4 %; EOSINOPHILS # (AUTO) 0.1 10^3/uL (0.0-0.7); EOSINOPHILS % (AUTO) 1.5 %; LYMPHOCYTES # (AUTO) 2.1 10^3/uL (1.5-3.5); LYMPHOCYTES % (AUTO) 25.1 %; MEAN CORPUSCULAR HEMOGLOBIN 26.4 pg (27.0-31.0); MEAN CORPUSCULAR HGB CONC 30.4 g/dL (32.0-36.0); MEAN CORPUSCULAR VOLUME 86.8 fL (81.0-99.0); MEAN PLATELET VOLUME 10.3 fL (7.9-10.8); MONOCYTES # (AUTO) 0.4 10^3/uL (0.0-1.0); MONOCYTES % (AUTO) 4.9 %; NEUTROPHILS # (AUTO) 5.8 10^3/uL (1.5-6.6); NEUTROPHILS % (AUTO) 67.9 %; PLT - PLATELET COUNT 261 10^3/uL (130-450); RED CELL DISTRIBUTION WIDTH 14.8 % (12.0-15.0); WHITE BLOOD COUNT 8.5 x10^3/uL (4.8-10.8)
[2022-04-17 17:21] LABS: ALBUMIN 4.4 g/dL (3.2-5.5); ALBUMIN/GLOBULIN RATIO 1.4 (1.0-2.2); ALKALINE PHOSPHATASE 48 IU/L (42-121); ALT ALANINE AMINOTRANSFERASE 23 IU/L (10-60); AST ASPARTATE AMINOTRANSFERASE 16 IU/L (10-42); BILIRUBIN,TOTAL 0.6 mg/dL (0.2-1.0); BUN - BLOOD UREA NITROGEN 15 mg/dL (6-20); CALCIUM 9.6 mg/dL (8.5-10.3); CARBON DIOXIDE - CO2 25 mmol/L (21-32); CHLORIDE 105 mmol/L (101-111); CHOL/HDL RATIO 3.5 (<4.4); CHOLESTEROL 171 mg/dL; CREATININE 0.9 mg/dL (0.4-1.0); GFR - MDRD 70 (>89); GLUCOSE 93 mg/dL (70-100); HDL CHOLESTEROL 49 mg/dL; LDL CHOLESTEROL,CALCULATED 99 mg/dL; LIPASE 50 U/L (22-51); POTASSIUM 3.8 mmol/L (3.5-5.0); SODIUM 139 mmol/L (135-145); TOTAL PROTEIN 7.5 g/dL (6.7-8.2); TRIGLYCERIDES 116 mg/dL; VLDL CHOLESTEROL 23 mg/dL
--- NOTE | 2022-04-17 17:25 | XRAY Report ---
PROCEDURE: Lumbar Spine Complete INDICATIONS: RAQ PAIN, RT FLANK PAIN, BACK PAIN,LUMBAR TECHNIQUE: 5 views of the lumbar spine were acquired. COMPARISON: 10/16/2016 FINDINGS: Bones: 5 [id number] vertebrae are present. Mild gradual leftward lumbar curvature with the ape x at the L3 level. There is normal AP bony alignment. No vertebral body compression fractures. No s uspicious bony lesions. No pars defects. Mild facet arthropathy at L5-S1. Normal disc spacing. Soft tissues: Overlying bowel gas pattern is normal. Chronic left mid abdominal calcification L3-4.. Cholecystectomy clips. IMPRESSION: 1. Minor lumbar levoscoliosis. 2. Mild lower lumbar facet arthropathy. 3. No progressive disc space loss. Reviewed by: Lida Beck MD on 04/17/2022 5:24 PM PST Approved by: Lida Beck MD on 04/17/2022 5:24 PM PST Station ID: [id number]
[2022-04-17 17:33] LABS: THYROID STIMULATING HORMONE 2.46 uIU/mL (0.34-5.60)
[2022-04-17] MEDS ORDERED: iohexoL-300 100 ML VIAL IVP ONE (18:05)
[2022-04-17] MEDS ORDERED: DIATRIZOATE MEGLU/DIATRIZO SOD 30 ML BOTTLE PO ONE (18:06)
--- NOTE | 2022-04-17 20:23 | CT Report ---
PROCEDURE: ABDOMEN/PELVIS W INDICATIONS: RUQ PAIN, RT FLANK PAIN CONTRAST: 100ml omni 300 TECHNIQUE: After the administration of intravenous contrast, 5 mm thick sections acquired from the diaphragms to the symphysis. 5 mm thick coronal and sagittal reformats were acquired. For radiation dose reducti on, the following was used: automated exposure control, adjustment of mA and/or kV according to santana ent size. COMPARISON: 05/15/2020 FINDINGS: Image quality: Excellent. ABDOMEN: Lung bases: Lung bases are clear. Heart size is normal. Mild to moderate hiatal hernia. Solid organs: There is normal in size and enhancement. Mild splenomegaly, as before Gallbladder is christiansen rgically absent. 04/17/2020 Biliary system is non dilated. Pancreas enhances normally. No adrenal n odules. Kidneys demonstrate normal size and enhancement, without hydronephrosis. Peritoneum and bowel: Bowel loops demonstrate normal wall thickness and caliber. No free fluid or a ir. Nodes and vessels: No retroperitoneal or mesenteric adenopathy by size criteria. Aorta and inferior vena cava are normal in size. Miscellaneous: No ventral hernias. PELVIS: Genitourinary: Bladder wall thickness is normal. Miscellaneous: No inguinal hernias or adenopathy. Bones: No suspicious bony lesions. No vertebral body compression fractures. IMPRESSION: 1. No evidence of acute abdominal process. 2. Remote cholecystectomy. 3. Mild splenomegaly. Findings are concordant with preliminary interpretation provided by [facility]. Reviewed by: Nir Booker MD on 04/17/2022 8:22 PM PST Approved by: Nir Booker MD on 04/17/2022 8:22 PM PST Station ID: [id number]
[2022-04-17 22:22] LABS: ESTIMATED AVERAGE GLUCOSE 103 mg/dL (70-100); HEMOGLOBIN A1c% 5.2 % (4.27-6.07)
== END 2022-04-17 15:41 | disposition home or self-care (01) ==
LOC: DI 15:40
PROVIDERS: ATTEND Physician Assistant
DX: M47.816 Spondylosis without myelopathy or radiculopathy, lumbar region (principal); R10.11 Right upper quadrant pain; R10.9 Unspecified abdominal pain; E78.1 Pure hyperglyceridemia; R73.01 Impaired fasting glucose; R16.1 Splenomegaly, not elsewhere classified; Z90.49 Acquired absence of other specified parts of digestive tract
CPT/HCPCS: 36415; 72110; 74177; 80053; 80061; 83036; 83690; 84443; 85025; Q9963; Q9967; 83721

== ENCOUNTER 2022-07-23 16:00 | Outpatient (CLI) | payer BC ==
[2022-07-23 16:14] LABS: BASOPHILS % (AUTO) 0.4 %; EOSINOPHILS # (AUTO) 0.2 10^3/uL (0.0-0.7); EOSINOPHILS % (AUTO) 2.7 %; HCT - HEMATOCRIT 43.3 % (37.0-47.0); HGB - HEMOGLOBIN 13.6 g/dL (12.0-16.0); LYMPHOCYTES # (AUTO) 1.8 10^3/uL (1.5-3.5); LYMPHOCYTES % (AUTO) 25.1 %; MEAN CORPUSCULAR HGB CONC 31.4 g/dL (32.0-36.0); MEAN CORPUSCULAR VOLUME 86.1 fL (81.0-99.0); MEAN PLATELET VOLUME 10.5 fL (7.9-10.8); MONOCYTES # (AUTO) 0.4 10^3/uL (0.0-1.0); MONOCYTES % (AUTO) 5.6 %; NEUTROPHILS # (AUTO) 4.7 10^3/uL (1.5-6.6); NEUTROPHILS % (AUTO) 66.1 %; PLT - PLATELET COUNT 233 10^3/uL (130-450); RED BLOOD COUNT 5.03 10^6/uL (4.20-5.40); WHITE BLOOD COUNT 7.1 x10^3/uL (4.8-10.8)
[2022-07-23 16:32] LABS: ALBUMIN 4.4 g/dL (3.2-5.5); ALBUMIN/GLOBULIN RATIO 1.6 (1.0-2.2); BILIRUBIN,TOTAL 0.8 mg/dL (0.2-1.0); CREATININE 0.8 mg/dL (0.4-1.0); POTASSIUM 3.7 mmol/L (3.5-5.0); TOTAL PROTEIN 7.2 g/dL (6.7-8.2)
--- NOTE | 2022-07-23 18:19 | CT Report ---
PROCEDURE: ABDOMEN/PELVIS W INDICATIONS: EPIGASTRIC PAIN CONTRAST: 100mL Omni 300 TECHNIQUE: After the administration of IV contrast, 5 mm thick sections acquired from the diaphragms to the symp hysis. 5 mm thick coronal and sagittal reformats were acquired. For radiation dose reduction, the f ollowing was used: automated exposure control, adjustment of mA and/or kV according to patient size. COMPARISON: CT abdomen pelvis 04/17/2022. FINDINGS: Image quality: Excellent. Lung bases and heart: Unremarkable. Liver: Liver is enlarged measuring 18.8 cm with steatosis, unchanged. Gallbladder and biliary tree: Removed Spleen: Spleen measures 15.1 cm. It previously measured 14 cm. Pancreas: No pancreatic ductal dilation. Adrenals: No adrenal nodule. Kidneys and ureters: No hydronephrosis. No renal cystic lesion which requires follow up. No solid mas s. Bowel and peritoneum: No bowel distension. No pathologic free fluid. Mild hiatal hernia. Lymph nodes: No central or retroperitoneal adenopathy. Vessels: No infrarenal aortic aneurysm. PELVIS Reproductive organs: Unremarkable. Bladder: No abnormal wall thickening, accounting for underdistension. Pelvic lymph nodes: No pelvic adenopathy by size criteria. Bones: No aggressive osseous abnormality. Other: No significant ventral or inguinal hernia. IMPRESSION: Mild hiatal hernia. Reviewed by: Tootie Littlejohn MD on 07/23/2022 6:18 PM PDT Approved by: Tootie Littlejohn MD on 07/23/2022 6:18 PM PDT Station ID: [id number]
[2022-07-23] MEDS ORDERED: DIATRIZOATE MEGLU/DIATRIZO SOD 30 ML BOTTLE PO ONE (19:09)
== END 2022-07-23 16:01 | disposition home or self-care (01) ==
LOC: DI 16:00
PROVIDERS: ATTEND Physician Assistant
DX: K44.9 Diaphragmatic hernia without obstruction or gangrene (principal)
CPT/HCPCS: 36415; 74177; 80053; 83690; 85025; Q9963; Q9967

== ENCOUNTER 2023-07-27 18:52 | Outpatient (CLI) | payer OTHER ==
--- NOTE | 2023-07-27 22:01 | XRAY Report ---
PROCEDURE: Shoulder 2+V LT INDICATIONS: OTHER SPRAIN OF LEFT SHOULDER JOINT TECHNIQUE: 3 views of the shoulder were acquired. COMPARISON: Chest radiograph dated 12/03/2021. FINDINGS: Bones: No fractures or dislocations. Mild acromioclavicular joint osteoarthritic changes are seen wi th joint space narrowing and subchondral sclerosis. No suspicious bony lesions. Visualized ribs appe ar intact. Soft tissues: No suspicious soft tissue calcifications. The visualized lungs are within normal limi ts. IMPRESSION: No acute bony abnormality. Mild acromioclavicular joint osteoarthritis. Reviewed by: Long Bullock MD on 07/27/2023 10:00 PM PDT Approved by: Long Bullock MD on 07/27/2023 10:00 PM PDT Station ID: [id number]
--- NOTE | 2023-07-27 22:02 | XRAY Report ---
PROCEDURE: Knee 3V RT INDICATIONS: CONTUSION OF RIGHT KNEE TECHNIQUE: 3 views of the knee(s) were acquired. COMPARISON: None. FINDINGS: Bones: No fractures or dislocations. Mild osteoarthritic changes in medial femoral tibial compartmen t is seen with joint space narrowing and subchondral sclerosis. No significant patellar subluxation. No suspicious bony lesions. Soft tissues: No knee joint effusion. No suspicious soft tissue calcifications or masses. IMPRESSION: No acute bony abnormality. Mild medial femoral tibial compartment osteoarthritis. Reviewed by: Long Bullock MD on 07/27/2023 10:01 PM PDT Approved by: Long Bullock MD on 07/27/2023 10:01 PM PDT Station ID: [id number]
--- NOTE | 2023-07-27 22:03 | XRAY Report ---
PROCEDURE: Wrist 3+V RT INDICATIONS: CONTUSION OF RIGHT WRIST TECHNIQUE: 3 views of the wrist were acquired. COMPARISON: None. FINDINGS: Bones: No fractures or dislocations. No suspicious bony lesions. Soft tissues: No suspicious soft tissue calcifications or masses. IMPRESSION: No acute bony abnormality. Reviewed by: Long Bullock MD on 07/27/2023 10:01 PM PDT Approved by: Long Bullock MD on 07/27/2023 10:01 PM PDT Station ID: [id number]
== END 2023-07-27 18:53 | disposition home or self-care (01) ==
LOC: DI 18:52
PROVIDERS: ATTEND Family Medicine
DX: S43.492A Other sprain of left shoulder joint, initial encounter (principal); S60.211A Contusion of right wrist, initial encounter; S80.01XA Contusion of right knee, initial encounter; M17.11 Unilateral primary osteoarthritis, right knee; M19.012 Primary osteoarthritis, left shoulder

== ENCOUNTER 2023-08-02 16:39 | Emergency (ER) | payer BC, OTHER ==
--- NOTE | 2023-08-02 17:06 | ED Physician Documentation ---
PD HPI LOWER EXT INJURY - Stated complaint Stated Complaint: RT KNEE INJ - Chief complaint Chief Complaint: Ext Problem - History obtained from History obtained from: Patient - Additional information Additional information: The patient comes to the emergency department chief complaint of right knee pain. 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 She has had some generalized swelling and had bruising anteriorly but this is gradually subsiding. She states that she had x-rays done when this first happened and they were negative, but the pain has become excruciating. She has been bearing weight ever since and has a fairly physical job in which she gets [id number] steps per day. She has been using a neoprene knee brace, but it keeps sliding off. She has not been using any crutches. She has had a little numbness in her right foot. No new injury. No other comp laints at this time. PD PAST MEDICAL HISTORY - Past Medical History Cardiovascular: None Respiratory: Asthma Neuro: Migraines, Other Endocrine/Autoimmune: None GI: GERD SSIS SSRS DEVELOPER: None : None HEENT: None Psych: Depression, Anxiety, Bipolar disorder, Panic attacks, Post traumatic stress disorder Musculoskeletal: Fibromyalgia Derm: None - Past Surgical History Past Surgical History: No General: Cholecystectomy /SSIS SSRS DEVELOPER: Tubal ligation, Other - Present Medications Home Medications: Ambulatory Orders Medication Instructions Recorded Confirmed ALPRAZolam [Alprazolam] 0.5 mg PO DAILY PRN 02/18/18 08/02/23 Amphetamine [Dyanavel Xr] 10 mg PO DAILY 08/02/23 08/02/23 HYDROcod/ACETAM 5/325 [[place] 5/325] 1 - 2 tablet PO Q6H PRN #14 tablet 08/02/23 predniSONE [Deltasone] 10 mg PO [id number] #42 tab 08/02/23 - Allergies Allergies/Adverse Reactions: Allergies Allergy/AdvReac Type Severity Reaction Status Date / Time amoxicillin Allergy Intermediate Hives Verified 08/02/23 16:48 diphenhydramine AdvReac Anxiety Verified 08/02/23 16:48 [From Benadryl] - Social History Does the pt smoke?: No Smoking Status: Never smoker Does the pt drink ETOH?: No Does the pt have substance abuse?: Yes - Immunizations Immunizations are current?: No Immunizations: TDAP >10years/unknown - POLST Patient has POLST: No POLST Status: Full Code PD ED PE NORMAL - Vitals Vital signs reviewed: Yes - General General: Alert and oriented X 3, No acute distress, Well developed/nourished - HEENT HEENT: Atraumatic, EOMI, Moist mucous membranes - Neck Neck: Supple, no meningeal sign - Cardiac Cardiac: Strong equal pulses - Respiratory Respiratory: No respiratory distress - Derm Derm: Warm and dry, No rash, Other (Some resolving contusion on the right anterior knee overlying the patella. No erythema or induration.) - Extremities Extremities: No deformity, Other (The patient rests in full extension; can flex to approximately 25 degrees. Some palpable edema globally surrounding the knee. No obvious deformity. No instability.) - Neuro Neuro: No motor deficit, No sensory deficit, Other (Otherwise grossly intact) - Psych Psych: Normal mood, Normal affect Results - Vitals Vitals: Vital Signs - 24 hr 08/02/23 08/02/23 16:42 18:54 Temperature 36.6 C 36.2 C L Heart Rate 111 H 88 Respiratory 20 16 Rate Blood Pressure 115/81 H 101/73 O2 Saturation 98 100 Oxygen O2 Source [With Activity] Nasal cannula O2 Source Room air - Rads (name of study) CT RLE Relevant Findings:: Final report received, See rad report (Some degenerative and inflammatory findings, possible nonspecific soft tissue injury. No fracture) PD Medical Decision Making - ED course Complexity details: reviewed results, re-evaluated patient, considered differential, d/w patient ED course: The patient was treated symptomatically with IM Decadron, Toradol, and Dilaudid. She was worked up with CT of her right lower extremity, which was negative, other than for inflammatory and chronic degenerative changes. I d/w pt that I suspect a sprain, and that she has been up on her leg too much. I have placed her in an articulating knee brace and given her crutches. I have encouraged her to be NWB for at least the next few days, and stay off work. We have discussed NWB preferably until the knee is significantly improved in pain and ROM, then progressing from there as tolerated. I have given her information for ortho clinic, and we have discussed the possible need for MRI if no improvement in the next 2 weeks. Departure - Departure Disposition: 01 Home, Self Care Clinical Impression: Right knee sprain Qualifiers: Encounter type: initial encounter Involved ligament of knee: unspecified ligament Qualified Code(s): S83.91XA - Sprain of unspecified site of right knee, initial encounter Condition: Stable Instructions: ED Sprain Knee Follow-Up: Anirudh Haider MD [Provider Admit Priv/Credential] - Prescriptions: predniSONE [Deltasone] 10 mg PO [id number] #42 tab HYDROcod/ACETAM 5/325 [[place] 5/325] 1 - 2 tablet PO Q6H PRN #14 tablet PRN Reason: Pain Comments: Your imaging shows some arthritis in your knee and some inflammatory changes within the knee joint. There is probably a soft tissue injury, such as a sprain to [place] ligaments, though ultimately, MRI will detail this better. Most sprains get better on their own, given some weeks, and as such, an MRI usually is not done unless the symptoms dragged out without improvement for at least a few weeks. I have sent a prescription for some pain medication to the [facility] in [place]. Please pick this up and take as needed. You have also been given an articulating knee brace to help in some support. For the first few days, you should stay completely off of your right leg to allow your injured joint to start to settle down. You should use the crutches when getting around for this and even when she start bearing a little weight again, you should initially use the crutches to help unburden your right leg, as being on your knee constantly is likely aggravating your pain and injury. You should follow- up with your primary doctor if in a couple weeks she really do not notice any improvement in your symptoms. I have also given you the contact information for orthopedic clinic and you may contact them as well. Forms: PCP List, Activity restrictions Discharge Date/Time: 08/02/23 18:54
[2023-08-02] MEDS: DEXAMETHASONE 10 MG/ML VIAL IM STA (17:21)
[2023-08-02] MEDS: KETOROLAC 60 MG/2 ML VIAL IM STA (17:21)
[2023-08-02] MEDS: HYDROmorphone 1 MG/ML CARPUJECT IM STA (17:21)
--- NOTE | 2023-08-02 17:34 | CT Report ---
PROCEDURE: Lower Extremity RT WO INDICATIONS: knee injury, neg XR, excruciating pain TECHNIQUE: Noncontrast 3-mm axial sections acquired from the distal tibial shaft to the talar dome, with coronal and sagittal reformats. For radiation dose reduction, the following was used: automated exposure c ontrol, adjustment of mA and/or kV according to patient size. COMPARISON: Radiographs dated 07/27/2023. FINDINGS: Image quality: Diagnostic. Bones: Tricompartmental degenerative changes of the right knee. No acute fracture or dislocation. No suspicious osseous lesions. Normal alignment. Soft tissues: There is a small joint effusion. No suspicious soft tissue mass. No adenopathy. Likely small Mandel's cyst. There is subcutaneous soft tissue edema adjacent to the lateral aspect of the pa tella and lateral patellar retinaculum. There is also soft tissue inflammation extending along the la teral collateral ligamentous complex. No gross abnormality seen. Impression: Right knee without acute fracture or dislocation. Moderate tricompartmental degenerative changes of t he right knee. Soft tissue inflammatory changes adjacent to the lateral aspect of the patella and lateral patellar r etinaculum as well as the lateral collateral ligamentous complex. Possible soft tissue injury may be present. Consider further evaluation with nonemergent MRI of the knee for further evaluation. Reviewed by: Adam العراقي MD on 08/02/2023 5:33 PM PDT Approved by: Adam العراقي MD on 08/02/2023 5:33 PM PDT Station ID: [id number]
[2023-08-02 18:58] VITALS: BP 101/73; O2SAT 100
== END 2023-08-02 18:54 | disposition home or self-care (01) ==
LOC: ED 16:39
DX: S83.91XA Sprain of unspecified site of right knee, initial encounter (principal); S80.01XA Contusion of right knee, initial encounter; W18.39XA Other fall on same level, initial encounter; Y92.219 Unspecified school as the place of occurrence of the external cause; Y99.0 Civilian activity done for income or pay; J45.909 Unspecified asthma, uncomplicated; M79.7 Fibromyalgia; Z79.899 Other long term (current) drug therapy
CPT/HCPCS: 73700; 96372; 99283; 99284; J1170

== ENCOUNTER 2023-08-19 08:38 | Outpatient (CLI) | payer OTHER ==
--- NOTE | 2023-08-20 00:23 | XRAY Report ---
PROCEDURE: Knee 4+V RT INDICATIONS: RIGHT KNEE CONTUSION TECHNIQUE: 4 views of the knee(s) were acquired. COMPARISON: Right knee radiographs 07/27/2023 FINDINGS: Bones: No fractures or dislocations. No suspicious bony lesions. Mild right knee compartment join t space narrowing and subchondral sclerosis. Soft tissues: No knee joint effusion. No suspicious soft tissue calcifications or masses. IMPRESSION: No acute bony abnormality. Mild right knee medial compartment osteoarthrosis, not significantly [place] ed since 07/27/2023. If there is clinical concern for internal derangement, consider MRI evaluation. Reviewed by: Kandy Last MD, PhD on 08/19/2023 11:21 PM [place] Approved by: Kandy Last MD, PhD on 08/19/2023 11:21 PM [place]GETTE Station ID: [id number]
== END 2023-08-19 08:39 | disposition home or self-care (01) ==
LOC: DI 08:38
PROVIDERS: ATTEND Physician Assistant Surgical
DX: S80.01XD Contusion of right knee, subsequent encounter (principal); M17.11 Unilateral primary osteoarthritis, right knee

== ENCOUNTER 2023-09-10 07:40 | Outpatient (CLI) | payer BC, OTHER ==
--- NOTE | 2023-09-10 15:25 | MRI Report ---
PROCEDURE: Knee RT WO INDICATIONS: R KNEE INTERNAL DERANGEMENT TECHNIQUE: Noncontrast sagittal PD fast spin echo and T2 fast spin echo with fat saturation, sagittal 3-D spoile d GE with fat saturation; coronal T1 spin echo and PD fast spin echo with fat saturation, and axial P D fast spin echo with fat saturation through the knee. COMPARISON: Right knee radiographs 08/19/2023 FINDINGS: Image quality: Excellent. Anterior cruciate ligament: Intact. Posterior cruciate ligament: There is partial tearing at the mid substance of the posterior cruciate ligament. Some attenuated ligament fibers appear to remain in continuity. Medial collateral ligament: Intact. Lateral collateral ligament: Intact. Medial meniscus: Intact. Lateral meniscus: Intact. Medial and lateral tendons: The semimembranosus tendon insertions appear intact. Visualized portion s of the pes anserinus tendons appear normal. The popliteus tendon appears intact. Iliotibial band appears normal. Anterior structures: The patellar tendon and the distal quadriceps tendon appear intact. No patellar subluxation. No femoral trochlear dysplasia or ventral trochlear prominence. No edema in the infra patellar fat pad. Bones: No acute trabecular bone injury or fracture. Medial femorotibial cartilage: No focal cartilage defect. Lateral femorotibial cartilage: Deep cartilage fissuring in the posterior upper portion of the later al tibial plateau . Patellofemoral cartilage: Partial-thickness cartilage irregularity is seen at the median ridge of th e patella with mild focal subchondral edema. Soft tissues: There is a small joint effusion. There is a trace medial popliteal cyst. The musculat ure surrounding the knee is normal in bulk. Mild prepatellar bursal fluid. IMPRESSION: 1.Partial midsubstance tearing of the posterior cruciate ligament. Some ligament fibers remain in con tinuity. 2.No acute trabecular bone injury. Anterior cruciate ligament and collateral ligaments are intact. No meniscal tear. 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 Mild cartilage fissuring in the lateral compartment. 4.Small joint effusion. Small prepatellar bursal effusion. Reviewed by: Tigre Haro MD on 09/10/2023 3:23 PM PDT Approved by: Tigre Haro MD on 09/10/2023 3:23 PM PDT Station ID: [id number]
== END 2023-09-10 07:41 | disposition home or self-care (01) ==
LOC: DI 07:40
PROVIDERS: ATTEND Physician Assistant Surgical
DX: S83.521A Sprain of posterior cruciate ligament of right knee, initial encounter (principal); M94.261 Chondromalacia, right knee; M25.461 Effusion, right knee

== ENCOUNTER 2023-10-13 13:16 | Outpatient (CLI) | payer BC, OTHER ==
--- NOTE | 2023-10-13 22:52 | XRAY Report ---
PROCEDURE: Knee 4+V BL INDICATIONS: CHONDROMALACIA OF RIGHT PATELLA TECHNIQUE: 4 views of the knee(s) were acquired. COMPARISON: None. FINDINGS: Mild tricompartmental periarticular osteophyte formation. Bones: No fractures or dislocations. No suspicious bony lesions. Soft tissues: No knee joint effusion. No suspicious soft tissue calcifications or masses. IMPRESSION: Mild tricompartmental bilateral periarticular osteophyte formation indicating mild early joint degene ration. Reviewed by: RAZA Pérez on 10/13/2023 10:50 PM PDT Approved by: Tootie Littlejohn MD on 10/13/2023 10:50 PM PDT Station ID: [id number]
== END 2023-10-13 13:17 | disposition home or self-care (01) ==
LOC: DI.N 13:16
PROVIDERS: ATTEND Physician Assistant Surgical
DX: M22.41 Chondromalacia patellae, right knee (principal); M25.762 Osteophyte, left knee; M25.761 Osteophyte, right knee

== ENCOUNTER 2023-11-05 08:00 | Outpatient (CLI) | payer BC, OTHER ==
--- NOTE | 2023-11-05 16:11 | XRAY Report ---
PROCEDURE: Shoulder 2+V LT INDICATIONS: OTHER SPRAIN OF LEFT SHOULDER JOINT TECHNIQUE: 4 views of the left shoulder COMPARISON: None. FINDINGS: No acute fracture or dislocation. The joint spaces are preserved. The visualized left hemithorax is w ithin normal limits. IMPRESSION: No acute fracture or dislocation of the left shoulder. Reviewed by: José Miguel Duff MD on 11/05/2023 4:09 PM PDT Approved by: José Miguel Duff MD on 11/05/2023 4:09 PM PDT Station ID: [id number]
== END 2023-11-05 23:59 | disposition home or self-care (01) ==
LOC: DI.WOS 08:00
PROVIDERS: ATTEND Physician Assistant Surgical
DX: S43.492D Other sprain of left shoulder joint, subsequent encounter (principal)